=== PATIENT | female | born 1985 | race Two or more races ===

== ENCOUNTER 2016-03-30 11:29 | Inpatient (IN) | payer BC ==
[~2016-03-30] VITALS: Ht 160 cm; Wt 68.9 kg
[2016-03-30] MEDS ORDERED: IBUPROFEN200 MG ORAL (11:44)
[2016-03-30] MEDS ORDERED: TRAMADOL HCL50 MG ORAL (11:44)
[2016-03-30] MEDS ORDERED: Ampicillin/Sulbactam Sod 3 GM in NS 110 ML IVPB ONE (12:00)
[2016-03-30] MEDS ORDERED: NS 110 ML ONE (12:37)
[2016-03-30] MEDS ORDERED: Unasyn 3gm Inj ONE ×2 (12:37→17:58)
[2016-03-30 12:44] LABS: BASOPHILS % (AUTO) 1.4 % (0.0-2.0); LYMPHOCYTES % (AUTO) 27.4 % (20.0-45.0); MEAN CORPUSCULAR HEMOGLOBIN 31.7 PG (27.0-31.0); MEAN CORPUSCULAR HGB CONC 32.4 G/DL (32.0-36.0); MEAN CORPUSCULAR VOLUME 98 FL (80-99); MEAN PLATELET VOLUME 11.8 FL (6.5-10.1); MONOCYTES % (AUTO) 4.3 % (1.0-10.0); NEUTROPHILS % (AUTO) 63.9 % (45.0-75.0); PLATELET COUNT 212 K/UL (150-450); RED BLOOD COUNT 4.63 M/UL (4.20-5.40); RED CELL DISTRIBUTION WIDTH 12.2 % (11.6-14.8); WHITE BLOOD COUNT 10.3 K/UL (4.8-10.8)
[2016-03-30 12:59] LABS: APPEARANCE,URINE CLEAR
[2016-03-30 13:00] LABS: ALANINE AMINOTRANSFERASE 21 U/L (3-33); ALBUMIN/GLOBULIN RATIO 1.5 (1.0-2.7); ANION GAP 14 (5-15); ASPARTATE AMINO TRANSFERASE 22 U/L (5-40); CALCIUM 9.5 mg/dL (8.6-10.2); CARBON DIOXIDE 24 mEQ/L (20-30); CHLORIDE 101 mEQ/L (98-107); CREATININE 0.6 mg/dL (0.5-0.9); GLOMERULAR FILTRATION RATE > 60 mL/min (>60); HEMOLYSIS 6; KETONES,URINE NEGATIVE (NEGATIVE); LEUKOCYTE ESTERASE ,URINE 2+ (NEGATIVE); NITRITE,URINE NEGATIVE (NEGATIVE); PH,URINE 5 (4.5-8.0); POTASSIUM 4.2 mEQ/L (3.4-4.9); PROTEIN,URINE 1+ (NEGATIVE); SODIUM 139 mEQ/L (135-145); TOTAL PROTEIN 7.7 g/dL (6.6-8.7); UROBILINOGEN,URINE NORMAL MG/DL (0.0-1.0)
[2016-03-30 13:02] LABS: BACTERIA,URINE FEW /HPF; RBC,URINE 0-2 /HPF (0 - 2); SQUAMOUS EPITHELIAL CELL,UR FEW /LPF (NONE/OCC); WBC,URINE 15-20 /HPF (0 - 2)
--- NOTE | 2016-03-30 13:13 | History and Physical ---
History of Present Illness General Date patient seen: Mar 30, 2016 Time patient seen: 13:08 Reason for Hospitalization: Pain Present Illness HPI 31 y/o female who presents with severe gluteal pain and burning in that area since Sep 2014. In addition she states she also experiences low back pain ( severe) that radiates down both of her legs, causing paresthesias and some weakness as well. No bladder retention, no fecal incontinence. She did have an injection of silicone in her buttocks 4 years ago. Additional symptoms include, shortness of breath, occasional cough, vertigo and nausea over the past 1-2 months. Also states she has fatigue/malaise, that is impacting her ADLs and social interactions. She denies any other medical issues, no medications for chronic disease, non-smoker, occasional etoh use, smokes marijuana 1-2 times a month due to her severe pain, starting about 2 months ago. Allergies: Coded Allergies: No Known Allergies (Unverified , 03/30/16) Medication History Scheduled Ibuprofen (Ibuprofen*), 400 MG ORAL FOUR TIMES A DAY, (Reported) Scheduled PRN Tramadol Hcl* (Ultram*), 50 MG ORAL Q6H PRN for For Pain, (Reported) Patient History History Provided By: Patient Healthcare decision maker Resuscitation status Advanced Directive on File Family History Family History: Patient reports no known family medical history. Social History Social History: (1) No significant social history Review of Systems Constitutional: Reports: malaise Eye: Denies: acuity changes, blurred vision, discharge, double vision, eye pain , no symptoms, nose congestion, nose pain, other, see HPI, tearing ENT: Denies: ear discharge, ear pain, hearing loss, mouth pain, nasal discharge , no symptoms, nose congestion, nose pain, other, see HPI, throat pain, throat swelling Respiratory: Reports: cough, shortness of breath Cardiovascular: Denies: PND, chest pain, edema, no symptoms, other, palpitations, see HPI, syncope Gastrointestinal: Reports: diarrhea, nausea Genitourinary: Denies: discharge, dysuria, frequency, hematuria, incontinence, no symptoms, other, pain, retention, see HPI, urgency, vag bleed/dc Musculoskeletal: Reports: back pain, muscle pain Skin: Denies: change in color, change in hair/nails, dryness, lesions, no symptoms, other, rash, see HPI Psychiatric: Denies: HI, SI, anxiety, depressed feelings, emotional problems, hallucinations, no symptoms, other, prior hx, see HPI Neurological: Reports: dizziness Endocrine: Denies: excessive sweating, flushing, increased thirst, increased urine, intolerance to temperature, no symptoms, other, see HPI, unexplained weight loss Hematologic/Lymphatic: Denies: anemia, blood clots, diathesis, easy bleeding, easy bruising, no symptoms, other, see HPI, swollen glands Physical Exam General Appearance: WD/WN, no apparent distress, alert Lines, tubes and drains: peripheral HEENT: normocephalic, atraumatic, anicteric, mucous membranes moist Neck: non-tender, normal alignment, supple Respiratory/Chest: chest wall non-tender, lungs clear, normal breath sounds, no respiratory distress, no accessory muscle use Cardiovascular/Chest: normal peripheral pulses, normal rate, regular rhythm, no gallop/murmur, no JVD Abdomen: normal bowel sounds, non tender, soft Extremities: normal range of motion, non-tender, normal inspection, no calf tenderness, normal capillary refill Skin Exam: normal pigmentation, warm/dry, no diaphoresis Neurologic: alert, oriented x 3, responsive, normal mood/affect Last 24 Hour Vital Signs Date Time Temp Pulse Resp B/P Pulse Ox O2 Delivery O2 Flow Rate FiO2 03/30/16 11:39 97.9 81 16 124/76 100 Room Air Laboratory Tests Test 03/30/16 12:15 White Blood Count 10.3 K/UL (4.8-10.8) Red Blood Count 4.63 M/UL (4.20-5.40) Hemoglobin 14.7 G/DL (12.0-16.0) Hematocrit 45.3 % (37.0-47.0) Mean Corpuscular Volume 98 FL (80-99) Mean Corpuscular Hemoglobin 31.7 PG (27.0-31.0) H Mean Corpuscular Hemoglobin Concent 32.4 G/DL (32.0-36.0) Red Cell Distribution Width 12.2 % (11.6-14.8) Platelet Count 212 K/UL (150-450) Mean Platelet Volume 11.8 FL (6.5-10.1) H Neutrophils (%) (Auto) 63.9 % (45.0-75.0) Lymphocytes (%) (Auto) 27.4 % (20.0-45.0) Monocytes (%) (Auto) 4.3 % (1.0-10.0) Eosinophils (%) (Auto) 3.0 % (0.0-3.0) Basophils (%) (Auto) 1.4 % (0.0-2.0) Urine Color Yellow Urine Appearance Clear Urine pH 5 (4.5-8.0) Urine Specific [place] 1.020 (1.005-1.035) Urine Protein 1+ (NEGATIVE) H Urine Glucose (UA) Negative (NEGATIVE) Urine Ketones Negative (NEGATIVE) Urine Occult Blood Negative (NEGATIVE) Urine Nitrite Negative (NEGATIVE) Urine Bilirubin Negative (NEGATIVE) Urine Urobilinogen Normal MG/DL (0.0-1.0) Urine Leukocyte Esterase 2+ (NEGATIVE) H Urine RBC 0-2 /HPF (0 - 2) Urine WBC 15-20 /HPF (0 - 2) H Urine Squamous Epithelial Cells Few /LPF (NONE/OCC) Urine Bacteria Few /HPF (NONE) Sodium Level 139 mEQ/L (135-145) Potassium Level 4.2 mEQ/L (3.4-4.9) Chloride Level 101 mEQ/L (98-107) Carbon Dioxide Level 24 mEQ/L (20-30) Anion Gap 14 (5-15) Blood Urea Nitrogen 9 mg/dL (7-23) Creatinine 0.6 mg/dL (0.5-0.9) Estimat Glomerular Filtration Rate > 60 mL/min (>60) Glucose Level 94 mg/dL (74-106) Calcium Level 9.5 mg/dL (8.6-10.2) Total Bilirubin 0.8 mg/dL (0.0-1.2) Aspartate Amino Transf (AST/SGOT) 22 U/L (5-40) Alanine Aminotransferase (ALT/SGPT) 21 U/L (3-33) Alkaline Phosphatase 53 U/L (35-104) Total Protein 7.7 g/dL (6.6-8.7) Albumin 4.7 g/dL (3.5-5.2) Globulin 3.0 g/dL Albumin/Globulin Ratio 1.5 (1.0-2.7) Height (Feet): 5 Height (Inches): 3.00 Weight (Pounds): 152 Assessment/Plan Problem List: (1) Intractable low back pain Assessment & Plan: Admit to inpatient Will need expedited workup of severe low back pain, s/p gluteal silicone injection Extensive lab workup to r/o KIMBERLYN syndrome given classical symptoms and presentation MRI L spine and pelvis to r/o fluid collection, cord compression, soft tissue necrosis Check urine f/u blood cultures Start IV unasyn A total of 31 mins of additional time was spent with this patient beyond the normal face to face time included in the visit ICD Codes: M54.5 - Low back pain SNOMED: [id number] GERMAN VIEIRA Mar 30, 2016 13:13
[2016-03-30] MEDS ORDERED: Milk of Magnesia 30ml Ud ORAL PRN (13:15)
[2016-03-30] MEDS ORDERED: Miralax 17gm pkt ORAL PRN (13:15)
[2016-03-30] MEDS ORDERED: Mylanta II UD 30ml ORAL PRN (13:15)
[2016-03-30] MEDS ORDERED: LORazepam 1mg tab ORAL PRN (13:15)
[2016-03-30] MEDS: Morphine Sulfate 4mg/ml Inj IVP PRN ×2 (13:52→17:49)
--- NOTE | 2016-03-30 13:58 | Emergency Room Report ---
History of Present Illness General Chief Complaint: Pain Source: Patient Present Illness HPI 31-year-old female presents to ED complaining of pain in her buttocks x1 year. States that 3 years ago she received silicone injections in her buttocks. States that for last 1 year she has had pain in her buttocks bilaterally sharp, 10 out of 10, radiating upper back and down her legs bilaterally. Denies fevers or chills. Denies dysuria or hematuria. Denies bowel or bladder incontinence. Denies leg or motor weakness. Patient referred here by Dr. Clay. Denies any other associated symptoms Allergies: Coded Allergies: No Known Allergies (Unverified , 03/30/16) Patient History Past Medical History: none Past Surgical History: other - silicon injections in buttocks Pertinent Family History: none Social History: Denies: alcohol use, drug use, smoking Last Menstrual Period: March 02, 2016 Now: No Immunizations: UTD Reviewed Nursing Documentation: PMH: Agreed, PSxH: Agreed Nursing Documentation-PMH Hx Cardiac Problems: Yes - Heart murmur as a child Review of Systems All Other Systems: negative except mentioned in HPI Physical Exam Vital Signs Date Time Temp Pulse Resp B/P Pulse Ox O2 Delivery O2 Flow Rate FiO2 03/30/16 11:39 97.9 81 16 124/76 100 Room Air Sp02 EP Interpretation: reviewed, normal General Appearance: no apparent distress, alert, GCS 15, non-toxic Head: normocephalic Eyes: bilateral eye PERRL, bilateral eye normal inspection ENT: normal ENT inspection Neck: normal inspection Respiratory: chest non-tender, lungs clear, normal breath sounds, speaking full sentences Cardiovascular #1: regular rate, rhythm, no edema Gastrointestinal: normal bowel sounds, non tender, soft, non-distended, no guarding, no rebound Rectal: deferred Genitourinary: no CVA tenderness Musculoskeletal: back normal, gait/station normal, normal range of motion, non- tender Neurologic: alert, oriented x3, responsive, kitchen cleaner III-XII nml as tested, motor strength/tone normal, sensory intact, speech normal Psychiatric: normal inspection Skin: other - induration/tenderness to buttocks b/l Lymphatic: normal inspection Medical Decision Making Diagnostic Impression: Primary Impression: Intractable low back pain Additional Impression: Adverse effect of silicone Qualified Codes: T49.3X5A - Adverse effect of emollients, demulcents and protectants, initial encounter ER Course Hospital Course 31-year-old female present to ED complaining of bilateral pain to buttocks, radiating up the back, down the legs. s/p silicon injections in buttocks Differential diagnoses include: Cellulitis, abscess, allergic reaciton Clinical course Patient placed on stretcher. After initial history and physical I ordered labs , blood Cx labs reviewed - no leukocytosis, Hb/Hct stable, no electrolyte abnormalities. antibiotics given. Case discussed with Dr Clay and he agreed to accept the patient to his service for further care and support Diagnosis - intractable low back pain, adverse affect of silicone Patient admitted to floor in serious condition Labs Test 03/30/16 12:15 White Blood Count 10.3 K/UL (4.8-10.8) Red Blood Count 4.63 M/UL (4.20-5.40) Hemoglobin 14.7 G/DL (12.0-16.0) Hematocrit 45.3 % (37.0-47.0) Mean Corpuscular Volume 98 FL (80-99) Mean Corpuscular Hemoglobin 31.7 PG (27.0-31.0) Mean Corpuscular Hemoglobin Concent 32.4 G/DL (32.0-36.0) Red Cell Distribution Width 12.2 % (11.6-14.8) Platelet Count 212 K/UL (150-450) Mean Platelet Volume 11.8 FL (6.5-10.1) Neutrophils (%) (Auto) 63.9 % (45.0-75.0) Lymphocytes (%) (Auto) 27.4 % (20.0-45.0) Monocytes (%) (Auto) 4.3 % (1.0-10.0) Eosinophils (%) (Auto) 3.0 % (0.0-3.0) Basophils (%) (Auto) 1.4 % (0.0-2.0) Urine Color Yellow Urine Appearance Clear Urine pH 5 (4.5-8.0) Urine Specific [place] 1.020 (1.005-1.035) Urine Protein 1+ (NEGATIVE) Urine Glucose (UA) Negative (NEGATIVE) Urine Ketones Negative (NEGATIVE) Urine Occult Blood Negative (NEGATIVE) Urine Nitrite Negative (NEGATIVE) Urine Bilirubin Negative (NEGATIVE) Urine Urobilinogen Normal MG/DL (0.0-1.0) Urine Leukocyte Esterase 2+ (NEGATIVE) Urine RBC 0-2 /HPF (0 - 2) Urine WBC 15-20 /HPF (0 - 2) Urine Squamous Epithelial Cells Few /LPF (NONE/OCC) Urine Bacteria Few /HPF (NONE) Sodium Level 139 mEQ/L (135-145) Potassium Level 4.2 mEQ/L (3.4-4.9) Chloride Level 101 mEQ/L (98-107) Carbon Dioxide Level 24 mEQ/L (20-30) Anion Gap 14 (5-15) Blood Urea Nitrogen 9 mg/dL (7-23) Creatinine 0.6 mg/dL (0.5-0.9) Estimat Glomerular Filtration Rate > 60 mL/min (>60) Glucose Level 94 mg/dL (74-106) Calcium Level 9.5 mg/dL (8.6-10.2) Total Bilirubin 0.8 mg/dL (0.0-1.2) Aspartate Amino Transf (AST/SGOT) 22 U/L (5-40) Alanine Aminotransferase (ALT/SGPT) 21 U/L (3-33) Alkaline Phosphatase 53 U/L (35-104) Total Protein 7.7 g/dL (6.6-8.7) Albumin 4.7 g/dL (3.5-5.2) Globulin 3.0 g/dL Albumin/Globulin Ratio 1.5 (1.0-2.7) Last Vital Signs Date Time Temp Pulse Resp B/P Pulse Ox O2 Delivery O2 Flow Rate FiO2 03/30/16 11:39 97.9 81 16 124/76 100 Room Air Status: improved Disposition: ADMITTED INPATIENT Condition: Serious Referrals: NOT CHOSEN NEGRA/,REFERRING (PCP) SEKOU CHAVEZ M.D. Mar 30, 2016 13:58
[2016-03-30 16:46] VITALS: BP 104/66
[2016-03-30] MEDS ORDERED: Unasyn 3gm Inj IV SCH (18:00)
[2016-03-30] MEDS: Ampicillin/Sulbactam Sod 3 GM in D5W 110 ML IVPB SCH (18:03)
[2016-03-30 20:00] VITALS: BP 114/68
[2016-03-30] MEDS ORDERED: Docusate 100mg cap ORAL SCH (21:00)
[2016-03-30] MEDS: Heparin 5000 units/ml inj SUBQ SCH (22:30)
[2016-03-31] VITALS: BP 117/77
[2016-03-31] MEDS: Morphine Sulfate 4mg/ml Inj IVP PRN ×2 (01:10→18:57)
[2016-03-31] MEDS ORDERED: Unasyn 3gm Inj ONE ×2 (01:22→04:20)
[2016-03-31 04:00] VITALS: BP 98/69
[2016-03-31] MEDS: Ampicillin/Sulbactam Sod 3 GM in D5W 110 ML IVPB SCH ×5 (04:58→18:02)
[2016-03-31 08:00] VITALS: BP 110/74
[2016-03-31] MEDS: Heparin 5000 units/ml inj SUBQ SCH ×2 (08:44→21:00)
[2016-03-31 09:12] LABS: ANION GAP 13 (5-15); CALCIUM 8.5 mg/dL (8.6-10.2); CARBON DIOXIDE 26 mEQ/L (20-30); CHLORIDE 101 mEQ/L (98-107); CREATININE 0.6 mg/dL (0.5-0.9); GLOMERULAR FILTRATION RATE > 60 mL/min (>60); HEMOLYSIS 8; POTASSIUM 4.4 mEQ/L (3.4-4.9); SODIUM 140 mEQ/L (135-145)
[2016-03-31 10:17] LABS: RHEUMATOID FACTOR SCREEN <10.0 IU/mL (0.0-13.9)
[2016-03-31 12:00] VITALS: BP 114/79
[2016-03-31 12:10] LABS: IMMUNOGLOBULIN A 186 mg/dL (87-352); IMMUNOGLOBULIN G 835 mg/dL (700-1600); IMMUNOGLOBULIN M 65 mg/dL (26-217)
--- NOTE | 2016-03-31 12:37 | Consultation ---
DATE OF CONSULTATION: 03/30/2016 CONSULTING PHYSICIAN: Lola Ugarte M.D. HISTORY OF PRESENT ILLNESS: This is a 31-year-old female, who presented with the severe gluteal pain and burning in the gluteal area since 2014 and she is here for correction with surgery. She also has pain that is radiating down to her both lower extremities and has paresthesia and tingling. During the evaluation, the patient presented with dysphoria and anxiety; however, it was minimal and was appropriate to the situation that she is in. The patient has had injections of silicone in her buttock four years ago. During the evaluation, mother was at bedside. We discussed the risks and benefits of the surgery. We discussed that it is impossible to remove all of the foreign materials and therefore, there will be some left. Some of the silicone might have migrated or continue to migrate in the future. The patient might have several surgeries over many years and there is a chance that it could be cosmetically disfiguring and there is a chance that there will not be any improvement after the surgery. The patient was able to understand, process, communicate, and appreciate the information that was given to her. PAST MEDICAL HISTORY: None. ALLERGIES: No known drug allergies. PAST PSYCHIATRIC HISTORY: None. SUBSTANCE ABUSE HISTORY: No history of illicit drug use or alcohol. Nonsmoker. MENTAL STATUS EXAMINATION: Alert and oriented x4. Mood is neutral. Affect is constricted, congruent with mood. Thought process is linear. Thought content, no suicidal or homicidal ideations. ASSESSMENT/IMPRESSION: The patient has no past psychiatric history and mentally, she has capacity to make an informed decision in regard to her current situation and surgery. She is able to understand, communicate, process, and appreciate the information that is given to her and she has capacity to make medical decisions. I will continue to assess the patient after the surgery. Lola Ugarte M.D. DR: Shobha JOB#: [id number] CC:
[2016-03-31] MEDS: Morphine Sulfate 2mg/ml Inj IVP PRN ×2 (12:39→23:55)
[2016-03-31 16:06] VITALS: BP 116/75
--- NOTE | 2016-03-31 16:25 | Diagnostic Imaging Report ---
Indication: History of bilateral buttocks silicone injections. Preoperative imaging for anticipated silicone removal to determine extent of involvement. Technique: Coronal and axial T1 fast spin echo, coronal FSE IR, axial FSE STIR, axial T2 FRFSE with and without fat saturated images obtained of the pelvis Comparison: None Findings: Extensive signal abnormality is seen within the bilateral buttock subcutaneous fat and bilateral gluteus nicolasa muscles. There is diffuse increased IR signal as well as innumerable high signal nodules within the subcutaneous fat and gluteus musculature on the IR images, low signal on the T1-weighted images, slightly high diffuse T2 signal and higher nodular signal on the T2-weighted images, and marked suppression of the nodular areas on the fat-saturated images. The nodular areas are consistent with silicone granulomas, with generalized signal abnormality presumably representing reactive edema. Largest focal area of signal abnormality is seen in the left gluteus nicolasa musculature peripherally, measures 6.6 cm length by 1.9 x 1.4 cm orthogonal dimensions. It is unclear whether this represents a large silicone granuloma or small abscess, although suspect the former. The areas of abnormality extends inferiorly into the perineum, but do not extend significantly into the thigh. The skin anteriorly no farther than the level of posterior ducts, and superiorly no farther than the L5 level. The bone marrow signal is normal. The included pelvic viscera are unremarkable except for prominent fluid signal within the endocervical canal. Impression: Extensive diffuse nodular signal abnormality of the bilateral buttock subcutaneous fat and bilateral gluteal musculature, consistent with no history of prior silicone injections. Extent of the solid appears to be limited to the bilateral buttocks, and perineum Larger tubular signal abnormality within the left gluteal musculature probably represents a large silicone granuloma, although small abscess cannot completely ruled out Nonspecific prominent fluid signal within the endocervical canal. Consider further evaluation with pelvic and endovaginal sonography
--- NOTE | 2016-03-31 17:56 | General Progress Note ---
Assessment/Plan Problem List: (1) Intractable low back pain Assessment & Plan: MRI pelvis shows nodules diffusely, edema and inability to r /o fluid collection/abscess Consult plastic surgery for eval for I+D, debridement f/u Extensive lab workup to r/o KIMBERLYN syndrome given classical symptoms and presentation f/u blood cultures Cont IV unasyn A total of 31 mins of additional time was spent with this patient beyond the normal face to face time included in the visit ICD Codes: M54.5 - Low back pain SNOMED: [id number] Subjective Date patient seen: Mar 31, 2016 Time patient seen: 17:53 ROS Limited/Unobtainable: No Constitutional: Denies: chills, diaphoresis, fever, malaise, no symptoms, other , weakness HEENT: Denies: blurred vision, double vision, ear discharge, ear pain, eye pain , mouth pain, mouth swelling, no symptoms, nose congestion, nose pain, other, tearing, throat pain, throat swelling Cardiovascular: Denies: chest pain, edema, irregular heart rate, lightheadedness, no symptoms, other, palpitations, syncope Respiratory: Denies: SOB at rest, SOB with excertion, cough, no symptoms, orthopnea, other, shortness of breath, sputum, stridor, wheezing Gastrointestinal/Abdominal: Denies: abdomen distended, abdominal pain, black stools, blood in stool, constipated, diarrhea, difficulty swallowing, nausea, no symptoms, other, poor appetite, poor fluid intake, rectal bleeding, tarry stools, vomiting Genitourinary: Denies: burning, discharge, flank pain, frequency, hematuria, incontinence, no symptoms, other, pain, urgency Neurologic/Psychiatric: Denies: anxiety, depressed, emotional problems, headache, no symptoms, numbness, other, paresthesia, pre-existing deficit, seizure, tingling, tremors, weakness Endocrine: Denies: excessive sweating, flushing, increased hunger, increased thirst, increased urine, intolerance to cold, intolerance to heat, no symptoms, other, unexplained weight gain, unexplained weight loss Hematologic/Lymphatic: Denies: anemia, easy bleeding, easy bruising, no symptoms, other Allergies: Coded Allergies: No Known Allergies (Unverified , 03/30/16) Subjective No acute overnight events, no new complaints. Denied chest pain or dyspnea, pain controlled on IV morphine, MRI pelvis done and shows subcu fluid and nodules Objective Last 24 Hour Vital Signs Date Time Temp Pulse Resp B/P Pulse Ox O2 Delivery O2 Flow Rate FiO2 03/31/16 16:06 97.9 84 18 116/75 98 Room Air 03/31/16 12:00 97.2 75 20 114/79 100 Room Air 03/31/16 08:00 97.5 75 20 110/74 95 Room Air 03/31/16 04:00 97.2 69 19 98/69 97 Room Air 03/31/16 01:40 97.5 03/31/16 00:00 97.5 65 19 117/77 99 Room Air 03/30/16 20:00 98.1 79 19 114/68 98 Room Air 03/30/16 18:50 98.0 81 18 104/66 97 Room Air Intake and Output 03/30/16 03/31/16 19:00 07:00 Intake Total 1100 ml Balance 1100 ml IV Total 1100 ml # Voids 2 Laboratory Tests 03/31/16 08:30: Sodium Level 140, Potassium Level 4.4, Chloride Level 101, Carbon Dioxide Level 26, Anion Gap 13, Blood Urea Nitrogen 6L, Creatinine 0.6, Estimat Glomerular Filtration Rate > 60, Glucose Level 85, Calcium Level 8.5L Height (Feet): 5 Height (Inches): 3.00 Weight (Pounds): 152 General Appearance: WD/WN, no apparent distress, alert EENT: PERRL/EOMI Neck: non-tender, normal alignment, supple Cardiovascular: normal peripheral pulses, normal rate, regular rhythm, no gallop/murmur, no JVD Respiratory/Chest: chest wall non-tender, lungs clear, normal breath sounds, no respiratory distress, no accessory muscle use Abdomen: normal bowel sounds, non tender, soft, no organomegaly Extremities: normal range of motion, non-tender, normal inspection, no calf tenderness Neurologic: alert, oriented x 3, responsive Skin: normal pigmentation, warm/dry, no diaphoresis GERMAN VIEIRA Mar 31, 2016 17:56
[2016-03-31 20:21] VITALS: BP 120/70
[2016-03-31] MEDS: LR 1000ml 1,000 ML IV SCH (21:02)
[2016-04-01] VITALS (13 sets, daily range): BP systolic 116–144; BP diastolic 70–93
[2016-04-01] MEDS: Ampicillin/Sulbactam Sod 3 GM in D5W 110 ML IVPB SCH ×4 (00:13→18:39)
[2016-04-01] MEDS: LR 1000ml 1,000 ML IV SCH ×2 (05:30→18:16)
[2016-04-01] MEDS: Heparin 5000 units/ml inj SUBQ SCH ×2 (08:44→21:58)
--- NOTE | 2016-04-01 09:07 | Consultation ---
History of Present Illness General Date patient seen: Apr 01, 2016 Chief Complaint: Pain Present Illness Allergies: Coded Allergies: No Known Allergies (Unverified , 03/30/16) Medication History Scheduled Ibuprofen (Ibuprofen*), 400 MG ORAL FOUR TIMES A DAY, (Reported) Scheduled PRN Tramadol Hcl* (Ultram*), 50 MG ORAL Q6H PRN for For Pain, (Reported) Patient History Healthcare decision maker Resuscitation status Full Code Advanced Directive on File Physical Exam Last 24 Hour Vital Signs Date Time Temp Pulse Resp B/P Pulse Ox O2 Delivery O2 Flow Rate FiO2 04/01/16 08:00 99.0 72 18 122/70 100 04/01/16 04:02 97.9 80 19 121/79 98 Room Air 04/01/16 00:40 97.4 69 18 116/76 97 Room Air 04/01/16 00:26 98.1 03/31/16 20:21 98.1 87 19 120/70 99 Room Air 03/31/16 16:06 97.9 84 18 116/75 98 Room Air 03/31/16 12:00 97.2 75 20 114/79 100 Room Air Intake and Output 03/31/16 04/01/16 19:00 07:00 Intake Total 360 ml 950 ml Balance 360 ml 950 ml Intake Oral 360 ml 240 ml IV Total 710 ml # Voids 2 2 # Bowel Movements 1 Laboratory Tests Test 04/01/16 05:30 Urine HCG, Qualitative Negative Height (Feet): 5 Height (Inches): 3.00 Weight (Pounds): 152 Medications Current Medications Medications (Trade) Dose Ordered Sig/Laura Route PRN Reason Start Time Stop Time Status Last Admin Dose Admin Acetaminophen (Tylenol) 650 mg Q4H PRN ORAL Mild Pain (Pain Scale 1-3) 03/30/16 13:15 04/29/16 13:14 Acetaminophen (Tylenol) 650 mg Q4H PRN ORAL fever 03/30/16 13:15 04/29/16 13:14 Al Hydroxide/Mg Hydroxide (Mylanta II) 30 ml Q6H PRN ORAL dyspepsia 03/30/16 13:15 04/29/16 13:14 Ampicillin Sodium/ Sulbactam Sodium 3 gm/Dextrose 110 ml @ 220 mls/hr Q6HR IVPB 03/30/16 18:00 04/06/16 17:59 04/01/16 05:30 Bisacodyl (Dulcolax) 10 mg HSPRN PRN RECTAL Constipation 03/30/16 13:15 04/29/16 13:14 Dextrose STAT PRN IV Hypoglycemia 03/30/16 13:15 04/29/16 13:14 Diphenhydramine HCl (Benadryl) 25 mg Q6H PRN ORAL Itching/Pruritis 03/30/16 13:15 04/29/16 13:14 Heparin Sodium (Porcine) (Heparin 5000 units/ml) 5,000 units EVERY 12 HOURS SUBQ 03/30/16 21:00 04/29/16 20:59 03/31/16 08:44 Lactated Ringer's (Lactated Ringer's 1000ml) 1,000 ml @ 100 mls/hr Q10H IV 03/31/16 20:00 04/30/16 19:59 04/01/16 05:30 Lorazepam (Ativan) 1 mg Q4H PRN ORAL For Anxiety 03/30/16 13:15 04/06/16 13:14 Magnesium Hydroxide (Mom) 30 ml HSPRN PRN ORAL Constipation 03/30/16 13:15 04/29/16 13:14 Morphine Sulfate (Morphine Sulfate) 2 mg Q4H PRN IVP Moderate Pain (Pain Scale 4-6) 03/30/16 13:15 04/06/16 13:14 03/31/16 23:55 Morphine Sulfate (Morphine Sulfate) 4 mg Q4H PRN IVP Severe Pain (Pain Scale 7-10) 03/30/16 13:15 04/06/16 13:14 03/31/16 18:57 Ondansetron HCl (Zofran) 4 mg Q6H PRN IVP Nausea & Vomiting 03/30/16 13:15 04/29/16 13:14 Temazepam (Restoril) 15 mg HSPRN PRN ORAL Insomnia 03/30/16 13:15 04/06/16 13:14 Assessment/Plan Assessment/Plan (1) B/L buttock and back soft tissue necrosis, cellulitis (2) Going for staged debridement of b/l buttock and back necrotic soft tissue, flap delay and vac placement (3) Intractable pain Seen dictated JOSHUA BEYER Apr 01, 2016 09:07
--- NOTE | 2016-04-01 09:09 | Diagnostic Imaging Report ---
Indication: History bilateral silicone injection in the buttocks. Assessment of extent prior to surgical removal Technique: Sagittal T1 and T2 fast spin echo, sagittal STIR, axial T1 and T2 fast spin-echo images of the lumbar spine Comparison: Reference made to pelvic MRI the same day Findings: High T2 and low T1 signal nodular opacities and generalized signal abnormality within the subcutaneous fat of the bilateral buttock region, as well as of the bilateral gluteus nicolasa musculature, is better appreciated on earlier Shira MRI. The lumbar spine demonstrates normal alignment, normal marrow signal. The discs are preserved. No significant disc bulge or protrusion, spinal stenosis, or neural foraminal stenosis demonstrated. The included abdominal and pelvic viscera are unremarkable. Impression: Signal abnormalities in the upper buttock and gluteal musculature, consistent with known history of silicone injections, extending as far cephalad as the L5 segment Otherwise unremarkable
[2016-04-01] MEDS ORDERED: Bacitracin 50000 Units Vial ONE (11:04)
--- NOTE | 2016-04-01 11:35 | Pre-Procedure Note/Attestation ---
Pre-Procedure Note/Attestation Complete Prior to Procedure Planned Procedure: bilateral Procedure Narrative: staged debridement of b/l back and buttock necrotic soft tissue, flap delay and vac placement Indications for Procedure Pre-Operative Diagnosis: b/l buttock and back necrotic soft tissue, flap delay Attestation I attest that I discussed the nature of the procedure; its benefits; risks and complications; and alternatives (and the risks and benefits of such alternatives ), prior to the procedure, with the patient (or the patient's legal area representative). I attest that, if there was a reasonable possibility of needing a blood transfusion, the patient (or the patient's legal area representative) was given the [place] Department [employer] Services standardized written summary, pursuant to the [place] Blood Safety Act ([place] Health and Safety Code # 1645, as amended). I attest that I re-evaluated the patient just prior to the surgery and that there has been no change in the patient's H&P, except as documented below: Luz Juan M.D. Apr 01, 2016 11:35
[2016-04-01] MEDS ORDERED: Propofol 10mg/ml 20ml IV ONE ×2 (11:40→12:00)
--- NOTE | 2016-04-01 11:44 | Anethesia Preoperative Eval ---
Anesthesia Pre-op PMH/ROS General Date of Evaluation: Apr 01, 2016 Time of Evaluation: 11:30 Anesthesiologist: Jose ASA Score: ASA 1 Mallampati Score Class I : Soft palate, uvula, fauces, pillars visible Class II: Soft palate, uvula, fauces visible Class III: Soft palate, base of uvula visible Class IV: Only hard plate visible Mallampati Classification: Class II Surgeon: Drake Diagnosis: Intractable back pain Surgical Procedure: Debridement of soft tissue necrotic tissue Family History: no anesthesia problems Allergies: Coded Allergies: No Known Allergies (Unverified , 03/30/16) Medications: see eMAR Past Medical History Cardiovascular: Reports: other - Patient had correction of ?patent foramen ovale or septal defect? at age 9., Denies: CAD, HTN, MS, arrhythmia, valve dz Pulmonary: Denies: COPD, HEATH, asthma, other Gastrointestinal/Genitourinary: Denies: CRI, ESRD, GERD, other Neurologic/Psychiatric: Denies: CVA, TIA, dementia, depression/anxiety, other Endocrine: Denies: DM, hypothyroidism, other, steroids HEENT: Denies: [place] (L), [place] (R), cataract (L), cataract (R), glaucoma, other Hematology/Immune: Denies: DVT, anemia, bleeding disorder, other Musculoskeletal/Integumentary: Denies: DDD, DJD, OA, RA, edema, other PMH Narrative: Denies PSxH Narrative: Repair of ?patent foramen ovale vs septal defect? at age 9 Anesthesia Pre-op Phys. Exam Physician Exam Last Vital Signs Date Time Temp Pulse Resp B/P Pulse Ox O2 Delivery O2 Flow Rate FiO2 04/01/16 08:00 99.0 72 18 122/70 100 04/01/16 04:02 Room Air Constitutional: NAD Neurologic: CN 2-12 intact Cardiovascular: RRR, no M/R/G Gastrointestinal: S/NT/ND Airway Exam Mallampati Score: Class II MO: full ROM: full Teeth: intact Anesthesia Pre-op A/P Labs WNL Urine Test Test 04/01/16 05:30 Urine HCG, Qualitative Negative Risk Assessment & Plan Assessment: Healthy female Plan: GETA, prone Status Change Before Surgery: Yes Pre-Antibiotics Drug: Ancef Given Within 1 Hr of Incision: Yes Time Given: 12:00 SHAYE ABREU M.D. Apr 01, 2016 11:44
[2016-04-01] MEDS ORDERED: LORazepam Inj 2mg/ml 1ml IV PRN (11:45)
[2016-04-01] MEDS ORDERED: LR 1000ml 1,000 ML IVLG SCH (11:45)
[2016-04-01] MEDS ORDERED: Meperidine 25mg/ml Inj IV PRN (11:45)
[2016-04-01] MEDS ORDERED: Hydromorphone 0.5mg/0.5ml inj IVP PRN (11:45)
--- NOTE | 2016-04-01 11:45 | Immediate Post-Op Evaluation ---
Immediate Post-Op Evalulation Immediate Post-Op Evalulation Procedure: Debridement of soft tissue necrotic tissue in low back Date of Evaluation: Apr 01, 2016 Time of Evaluation: 14:20 IV Fluids: 600 Estimated Blood Loss: 30 Urinary Output: 100 Blood Pressure Systolic: 130 Blood Pressure Diastolic: 78 Pulse Rate: 78 Respiratory Rate: 18 O2 Sat by Pulse Oximetry: 100 Temperature (Fahrenheit): 97.2 Pain Score (1-10): 3 Nausea: No Vomiting: No Complications No complication Patient Status: awake, patent, extubated, none Hydration Status: adequate Drug: Ancef Given Within 1 Hr of Incision: Yes Time Given: 11:50 SHAYE ABREU M.D. Apr 01, 2016 11:45
[2016-04-01] MEDS ORDERED: NS Irrig 1000ml ONE (12:00)
[2016-04-01] MEDS ORDERED: Midazolam 2mg/2ml Inj ONE (12:00)
[2016-04-01] MEDS ORDERED: Zemuron 50mg/5ml Inj IV ONE (12:00)
[2016-04-01] MEDS ORDERED: fentaNYL 100 mcg/2 mL IV ONE (12:00)
[2016-04-01] MEDS ORDERED: LR 1000ml ONE (12:00)
[2016-04-01] MEDS ORDERED: Sterile Water Irrig 1000ml IRRIG ONE (12:00)
--- NOTE | 2016-04-01 14:02 | Operative Note - PDOC ---
Operative Note Operative Note Pre-op Diagnosis: b/l buttock and back necrotic soft tissue, flap delay Procedure: staged debridement of b/l buttock and back pain, flap delay and vac placement Post-op Diagnosis: same as above Post-op Diagnosis: same as pre-op Surgeon: dani Haz Tech: isrrael Additional Surgeons: ruiz Anesthesiologist: connor Anesthesia: general Specimen: yes Complications: none Estimated Blood Loss: volume - 250 Drains: wound vac Implant(s) used?: No Luz Juan M.D. Apr 01, 2016 14:02
[2016-04-01] MEDS ORDERED: Metoclopramide 10mg/2ml Inj IVP PRN (14:15)
[2016-04-01] MEDS ORDERED: Rate Change PCA 1 Each MISC PRN (14:15)
[2016-04-01] MEDS: PCA HYDROmorphone 1mg/ml 30 ML IV PRN (14:59)
[2016-04-01] MEDS: PCA shift volume MISC SCH ×2 (15:00→23:28)
--- NOTE | 2016-04-01 17:47 | General Progress Note ---
Assessment/Plan Problem List: (1) Intractable low back pain Assessment & Plan: s/p I+D of buttocks, POD#0 Cont postop care Cont pain control Supp care f/u Extensive lab workup to r/o KIMBERLYN syndrome given classical symptoms and presentation f/u blood cultures Cont IV unasyn A total of 31 mins of additional time was spent with this patient beyond the normal face to face time included in the visit ICD Codes: M54.5 - Low back pain SNOMED: [id number] Subjective Date patient seen: Apr 01, 2016 Time patient seen: 17:45 ROS Limited/Unobtainable: No Constitutional: Reports: no symptoms HEENT: Reports: no symptoms Cardiovascular: Reports: no symptoms Respiratory: Reports: no symptoms Gastrointestinal/Abdominal: Reports: no symptoms Genitourinary: Reports: no symptoms Neurologic/Psychiatric: Reports: no symptoms Endocrine: Reports: no symptoms Hematologic/Lymphatic: Reports: no symptoms Allergies: Coded Allergies: No Known Allergies (Unverified , 03/30/16) Subjective s/p I+D of buttocks earlier today, postop pain well controlled on [employer]UP[employer]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0 04/01/16 14:11 78 18 100 04/01/16 14:10 69 24 128/76 100 Simple Mask 6.0 04/01/16 14:05 98.2 84 15 131/93 100 Simple Mask 6.0 04/01/16 08:00 99.0 72 18 122/70 100 04/01/16 04:02 97.9 80 19 121/79 98 Room Air 04/01/16 00:40 97.4 69 18 116/76 97 Room Air 04/01/16 00:26 98.1 03/31/16 20:21 98.1 87 19 120/70 99 Room Air Intake and Output 03/31/16 04/01/16 19:00 07:00 Intake Total 360 ml 950 ml Balance 360 ml 950 ml Intake Oral 360 ml 240 ml IV Total 710 ml # Voids 2 2 # Bowel Movements 1 Laboratory Tests 04/01/16 05:30: Urine HCG, Qualitative Negative Height (Feet): 5 Height (Inches): 3.00 Weight (Pounds): 152 General Appearance: WD/WN, no apparent distress, alert EENT: PERRL/EOMI Neck: non-tender, normal alignment, supple Cardiovascular: normal peripheral pulses, normal rate, regular rhythm Respiratory/Chest: chest wall non-tender, lungs clear, normal breath sounds, no respiratory distress Abdomen: normal bowel sounds, non tender, soft Extremities: normal range of motion, non-tender, normal inspection, no calf tenderness Neurologic: alert, oriented x 3, responsive, normal mood/affect Skin: normal pigmentation, warm/dry, no diaphoresis GERMAN VIEIRA Apr 01, 2016 17:47
--- NOTE | 2016-04-01 23:58 | Consultation ---
DATE OF CONSULTATION: 04/01/2016 CONSULTING PHYSICIAN: Keaton Rubin M.D. PHYSICIAN RADIO INTERFERENCE EXPERT: León Hargrove REFERRING PHYSICIAN: Chuy Shah M.D. CHIEF COMPLAINT: Buttock and back pain. HISTORY OF PRESENT ILLNESS: This is a 31-year-old female, who is being seen on the Med/Surg floor of [facility] for initial comprehensive pain management consultation. The patient has been having buttock and back pain caused by cellulitis and necrotic tissue and is scheduled with Dr. Juan for a debridement and wound VAC placement. At this time, the patient is on morphine 2 to 4 mg IV q.4 h. p.r.n. for pain, which has been controlling her pain until surgery. PAST MEDICAL HISTORY: Heart issues. PAST SURGICAL HISTORY: Heart murmur repair. ALLERGIES: No known drug allergies. MEDICATIONS: The patient does not take medications as an outpatient. SOCIAL HISTORY: Denies smoking, drinking alcohol, or drug abuse. REVIEW OF SYSTEMS: Denies rash, fever, chills, sweating, dizziness, drowsiness, blurred vision, sore throat, or change in weight. No shortness of breath or chest pain. No nausea, vomiting, or blood in the stool or urine. No bowel or bladder incontinence. The patient is complaining of back and buttock pain. PHYSICAL EXAMINATION: GENERAL APPEARANCE: Awake, alert and oriented. VITAL SIGNS: Blood pressure 122/70, heart rate 72, oxygen saturation 100%, respirations 18, and temperature is 99 degrees Fahrenheit. Height is 5 feet 3 inches with 160 pounds. NECK: Range of motion is full in all directions. No tenderness. No adenopathy. LUNGS: Clear. HEART: Regular. ABDOMEN: Benign. BACK: Range of motion is decreased in flexion and extension with tenderness to paraspinal muscles with skin changes noted on the buttock area with tenderness to palpation. EXTREMITIES: Upper extremity, range of motion is full in all directions. Motor is intact. No cyanosis, clubbing, or edema. Sensory is intact. Reflexes are not obtainable. No adenopathy. Lower extremity, range of motion is decreased due to the patient's clinical condition. Motor is intact. No cyanosis, clubbing, or edema. Sensory is intact. Reflexes are not obtainable. No adenopathy. ASSESSMENT AND PLAN: This is a 31-year-old female with bilateral buttock pain and back tissue necrosis and cellulitis, going for a staged debridement of the bilateral buttock and back with flap delay and wound VAC placement. Patient has intractable pain. The patient will be continued on morphine as needed. The patient was discussed with Dr. Rubin and Dr. Rubin concurred. We will follow the patient. Thank you very much for the courtesy of this consultation. Keaton Rubin M.D. PENNY Hargrove DR: BRANDON JOB#: [id number] CC:
[2016-04-02] VITALS: BP 109/55
[2016-04-02] MEDS: Ampicillin/Sulbactam Sod 3 GM in D5W 110 ML IVPB SCH ×4 (00:42→17:54)
[2016-04-02] MEDS: LR 1000ml 1,000 ML IV SCH ×2 (02:00→08:52)
[2016-04-02 04:00] VITALS: BP 101/56
[2016-04-02] MEDS: Heparin 5000 units/ml inj SUBQ SCH ×3 (06:07→22:07)
[2016-04-02] MEDS: PCA shift volume MISC SCH ×3 (07:00→23:00)
[2016-04-02 07:02] LABS: BASOPHILS % (AUTO) 0.9 % (0.0-2.0); EOSINOPHILS % (AUTO) 2.6 % (0.0-3.0); LYMPHOCYTES % (AUTO) 27.6 % (20.0-45.0); MEAN CORPUSCULAR HGB CONC 35.1 G/DL (32.0-36.0); MEAN CORPUSCULAR VOLUME 97 FL (80-99); MEAN PLATELET VOLUME 11.5 FL (6.5-10.1); MONOCYTES % (AUTO) 6.3 % (1.0-10.0); NEUTROPHILS % (AUTO) 62.6 % (45.0-75.0); PLATELET COUNT 178 K/UL (150-450); RED CELL DISTRIBUTION WIDTH 11.6 % (11.6-14.8); WHITE BLOOD COUNT 11.9 K/UL (4.8-10.8)
[2016-04-02 07:26] LABS: ANION GAP 11 (5-15); CALCIUM 8.5 mg/dL (8.6-10.2); CARBON DIOXIDE 26 mEQ/L (20-30); CHLORIDE 104 mEQ/L (98-107); CREATININE 0.6 mg/dL (0.5-0.9); GLOMERULAR FILTRATION RATE > 60 mL/min (>60); HEMOLYSIS 4; POTASSIUM 4.1 mEQ/L (3.4-4.9); SODIUM 141 mEQ/L (135-145)
[2016-04-02 08:00] VITALS: BP 101/58
--- NOTE | 2016-04-02 08:05 | General Progress Note ---
Assessment/Plan Assessment/Plan (1) B/L buttock and back soft tissue necrosis, cellulitis (2) S/p staged debridement of b/l buttock and back necrotic soft tissue, flap delay and vac placement (3) Intractable pain The patient will continue on the OFFICE SYSTEM ANALYST Dilaudid, Dilaudid IV SubQ The patient was discussed with Dr. Rubin and Dr. Rubin concurred. Subjective Date patient seen: Apr 02, 2016 Time patient seen: 08:00 - am Allergies: Coded Allergies: No Known Allergies (Unverified , 03/30/16) Subjective REVIEW OF SYSTEMS: Denies rash, fever, chills, sweating, dizziness, drowsiness, blurred vision, sore throat, or change in her weight. No shortness of breath or chest pain. No nausea, vomiting, diarrhea, or blood in the stool or urine. No bowel or bladder incontinence. No dysuria. Complaining of back and buttock pain. SUBJECTIVE: Pt is in bed laying on her stomach, pain is worse with movement and reduced on the mediations. Objective Last 24 Hour Vital Signs Date Time Temp Pulse Resp B/P Pulse Ox O2 Delivery O2 Flow Rate FiO2 04/02/16 04:00 97.5 73 18 101/56 96 Room Air 04/02/16 04:00 16 04/02/16 00:00 18 04/02/16 00:00 97.9 100 18 109/55 99 Nasal Cannula 3.0 04/01/16 20:30 97.2 78 20 126/81 Nasal Cannula 3.0 04/01/16 20:00 92.8 82 19 129/74 Room Air 04/01/16 20:00 18 04/01/16 16:13 Nasal Cannula 3.0 32 04/01/16 16:00 18 04/01/16 15:40 13 04/01/16 15:29 98.0 04/01/16 15:25 15 04/01/16 15:20 98.0 76 13 129/85 100 Nasal Cannula 3.0 04/01/16 15:14 15 04/01/16 15:08 98.0 04/01/16 15:05 69 15 144/82 100 Nasal Cannula 3.0 04/01/16 14:59 13 04/01/16 14:50 63 14 126/80 100 Nasal Cannula 3.0 04/01/16 14:44 97.3 04/01/16 14:35 64 17 134/81 100 Nasal Cannula 3.0 04/01/16 14:25 70 14 132/79 100 Nasal Cannula 3.0 04/01/16 14:15 69 17 134/79 100 Simple Mask 6.0 04/01/16 14:11 78 18 100 04/01/16 14:10 69 24 128/76 100 Simple Mask 6.0 04/01/16 14:05 98.2 84 15 131/93 100 Simple Mask 6.0 Intake and Output 04/01/16 04/02/16 19:00 07:00 Intake Total 1000 ml 1045 ml Output Total 280 ml 1350 ml Balance 720 ml -305 ml Intake Oral 560 ml IV Total 1000 ml 485 ml Output Urine Total 150 ml 1000 ml Estimated Blood Loss 30 ml Other 100 ml 350 ml Laboratory Tests 04/02/16 05:10: White Blood Count 11.9H, Red Blood Count 3.60L, Hemoglobin 12.3, Hematocrit 34.9L, Mean Corpuscular Volume 97, Mean Corpuscular Hemoglobin 34.0H, Mean Corpuscular Hemoglobin Concent 35.1, Red Cell Distribution Width 11.6, Platelet Count 178, Mean Platelet Volume 11.5H, Neutrophils (%) (Auto) 62.6, Lymphocytes (%) (Auto) 27.6, Monocytes (%) (Auto) 6.3, Eosinophils (%) (Auto) 2.6, Basophils (%) (Auto) 0.9, Sodium Level 141, Potassium Level 4.1, Chloride Level 104, Carbon Dioxide Level 26, Anion Gap 11, Blood Urea Nitrogen 5L, Creatinine 0.6, Estimat Glomerular Filtration Rate > 60, Glucose Level 85, Calcium Level 8.5L Height (Feet): 5 Height (Inches): 3.00 Weight (Pounds): 152 Objective PHYSICAL EXAMINATION: GENERAL: Alert, awake, and oriented x3. HEENT: PERRLA. NECK: Range of motion is full in all directions. No tenderness to the paracervical muscles. No adenopathy. LUNGS: Clear. HEART: Regular. ABDOMEN: Benign. BACK: Range of motion is decreased in flexion and extension with tenderness to paraspinal muscles with wound VAC seen and placed with tenderness to palpation on the buttock area. EXTREMITIES: No cyanosis. No clubbing. No edema. NEURO: No changes. JOSHUA BEYER Apr 02, 2016 08:05
[2016-04-02 09:35] LABS: A/G RATIO 1.6 (0.7-1.7); ABNORMAL PROTEIN BAND 1 Not Observed g/dL (Not Observed); ALBUMIN 3.7 g/dL (2.9-4.4); ALPHA-1 GLOBULIN 0.2 g/dL (0.0-0.4); ALPHA-2 GLOBULIN 0.5 g/dL (0.4-1.0); ANGIOTENSIN CONVERTING ENZYME 62 U/L (14-82); BETA GLOBULIN 0.8 g/dL (0.7-1.3); CD3 ABSOLUTE 2397 /uL (622-2402); CD4 ABSOLUTE 1530 /uL (359-1519); CD8 ABSOLUTE 758 /uL (109-897); GAMMA GLOBULIN 0.8 g/dL (0.4-1.8); GLOBULIN, TOTAL 2.3 g/dL (2.2-3.9); LYMPHOCYTES ABSOLUTE 3.4 x10E3/uL (0.7-3.1); LYMPHS 33 % (.); SS-B/La SJOGRENS ANTIBODY <0.2 AI (0.0-0.9); SSA/Ro SJOGRENS ANTIBODY <0.2 AI (0.0-0.9); WBC 10.4 x10E3/uL (3.4-10.8)
--- NOTE | 2016-04-02 10:47 | General Progress Note ---
Progress Note Progress Note Pt without and c/o and reports resolution of pre-op symptoms and pain (+) OOB AF/VSS H/H stable PE:flaps viable (-) collections (-) signs infection VACs functioning A/P 1. repeat am CBC; type and cross 1 U prbc 2. OOB, DVT ppx; Abx 3. NPO after MN thur-Fri; IVF after Mn thur-fri 4. to OR Fri for staged debridement of b/l buttocks necrotic soft tissue and flap closure 5. freq position changes Luz Juan M.D. Apr 02, 2016 10:47
[2016-04-02] MEDS ORDERED: LR 1000ml 1,000 ML IV SCH (11:00)
[2016-04-02 12:00] VITALS: BP 119/69
[2016-04-02] MEDS: PCA HYDROmorphone 1mg/ml 30 ML IV PRN (13:46)
--- NOTE | 2016-04-02 14:08 | 48 Hour Post Anesthesia Eval ---
Post Anesthesia Evaluation Procedure: Debridement of soft tissue necrotic tissue in low back Date of Evaluation: Apr 02, 2016 Time of Evaluation: 14:07 Blood Pressure Systolic: 120 0: 70 Pulse Rate: 76 Respiratory Rate: 20 Temperature (Fahrenheit): 97 O2 Sat by Pulse Oximetry: 97 Airway: patent Nausea: No Vomiting: No Pain Intensity: 3 Hydration Status: adequate Cardiopulmonary Status: stable Follow-up Care/Observations: na Post-Anesthesia Complications: na Follow-up care needed: N/A ANNMARIE TADEO M.D. Apr 02, 2016 14:08
[2016-04-02 16:18] VITALS: BP 118/62
--- NOTE | 2016-04-02 19:33 | General Progress Note ---
Assessment/Plan Problem List: (1) Intractable low back pain Assessment & Plan: s/p I+D of buttocks, POD#1 Cont postop care Cont pain control Supp care f/u Extensive lab workup to r/o KIMBERLYN syndrome given classical symptoms and presentation f/u blood cultures Cont IV unasyn ICD Codes: M54.5 - Low back pain SNOMED: [id number] Subjective Date patient seen: Apr 02, 2016 Time patient seen: 19:32 ROS Limited/Unobtainable: No Allergies: Coded Allergies: No Known Allergies (Unverified , 03/30/16) Subjective s/p I+D of buttocks POD#1, postop pain well controlled on [employer]SULTANT, no chest pain or dyspnea Objective Last 24 Hour Vital Signs Date Time Temp Pulse Resp B/P Pulse Ox O2 Delivery O2 Flow Rate FiO2 04/02/16 16:18 97.9 95 18 118/62 97 Room Air 04/02/16 14:08 76 20 97 04/02/16 12:00 16 04/02/16 12:00 97.0 103 18 119/69 93 Room Air 04/02/16 08:00 97.4 75 20 101/58 96 Room Air 04/02/16 08:00 16 04/02/16 07:55 Room Air 21 04/02/16 07:55 97 Room Air 04/02/16 04:00 97.5 73 18 101/56 96 Room Air 04/02/16 04:00 16 04/02/16 00:00 18 04/02/16 00:00 97.9 100 18 109/55 99 Nasal Cannula 3.0 04/01/16 20:30 97.2 78 20 126/81 Nasal Cannula 3.0 04/01/16 20:00 92.8 82 19 129/74 Room Air 04/01/16 20:00 18 Intake and Output 04/01/16 04/02/16 19:00 07:00 Intake Total 1000 ml 1920 ml Output Total 280 ml 1350 ml Balance 720 ml 570 ml Intake Oral 560 ml IV Total 1000 ml 1360 ml Output Urine Total 150 ml 1000 ml Estimated Blood Loss 30 ml Other 100 ml 350 ml Laboratory Tests 04/02/16 05:10: White Blood Count 11.9H, Red Blood Count 3.60L, Hemoglobin 12.3, Hematocrit 34.9L, Mean Corpuscular Volume 97, Mean Corpuscular Hemoglobin 34.0H, Mean Corpuscular Hemoglobin Concent 35.1, Red Cell Distribution Width 11.6, Platelet Count 178, Mean Platelet Volume 11.5H, Neutrophils (%) (Auto) 62.6, Lymphocytes (%) (Auto) 27.6, Monocytes (%) (Auto) 6.3, Eosinophils (%) (Auto) 2.6, Basophils (%) (Auto) 0.9, Sodium Level 141, Potassium Level 4.1, Chloride Level 104, Carbon Dioxide Level 26, Anion Gap 11, Blood Urea Nitrogen 5L, Creatinine 0.6, Estimat Glomerular Filtration Rate > 60, Glucose Level 85, Calcium Level 8.5L Height (Feet): 5 Height (Inches): 3.00 Weight (Pounds): 152 General Appearance: WD/WN, no apparent distress, alert EENT: PERRL/EOMI, normal ENT inspection Neck: non-tender, normal alignment, supple Cardiovascular: normal peripheral pulses, normal rate, regular rhythm, no gallop/murmur, no JVD Respiratory/Chest: chest wall non-tender, lungs clear, normal breath sounds, no respiratory distress, no accessory muscle use Abdomen: normal bowel sounds, non tender, soft Extremities: normal range of motion, non-tender, normal inspection, no calf tenderness Neurologic: alert, oriented x 3, responsive, normal mood/affect Skin: normal pigmentation, warm/dry, no diaphoresis GERMAN VIEIRA Apr 02, 2016 19:32
[2016-04-02 20:00] VITALS: BP 115/69
--- NOTE | 2016-04-02 22:18 | Progress Note ---
SUBJECTIVE: The patient is doing well. She is complaining of pain, which is appropriate due to the situation she is in. No behavior issues. Calm and cooperative. Cooperative with the staff. MENTAL STATUS EXAMINATION: Alert and oriented x4. Mood is slightly anxious. Affect is constricted. Congruent mood. Thought process is concrete. Thought content, there is no suicidal or homicidal ideations. ASSESSMENT: Stable. PLAN: Provide the patient with supportive therapy and reality orientation. Lola Ugarte M.D. DR: YOHANA JOB#: [id number] CC:
[2016-04-02] MEDS ORDERED: LORazepam 1mg tab ORAL PRN (22:30)
[2016-04-02] MEDS ORDERED: Morphine Sulfate 4mg/ml Inj SUBQ PRN (22:30)
[2016-04-02] MEDS ORDERED: Morphine Sulfate 2mg/ml Inj IVP PRN (22:30)
[2016-04-02] MEDS ORDERED: Naloxone 0.4mg/ml Inj IVP PRN (22:30)
[2016-04-03] VITALS: BP 109/62
[2016-04-03] MEDS: PCA Morphine 1mg/ml 30 ML IV PRN ×2 (00:36→20:22)
[2016-04-03 04:00] VITALS: BP 116/70
[2016-04-03] MEDS: Ampicillin/Sulbactam Sod 3 GM in D5W 110 ML IVPB SCH ×5 (05:34→18:04)
[2016-04-03] MEDS: Heparin 5000 units/ml inj SUBQ SCH ×3 (06:00→21:09)
[2016-04-03] MEDS: PCA shift volume MISC SCH ×3 (07:28→23:38)
[2016-04-03 08:00] VITALS: BP 101/63
--- NOTE | 2016-04-03 08:39 | General Progress Note ---
Assessment/Plan Assessment/Plan (1) B/L buttock and back soft tissue necrosis, cellulitis (2) S/p staged debridement of b/l buttock and back necrotic soft tissue, flap delay and vac placement (3) Intractable pain The patient will continue on the AREA COORDINATOR Morphine, and morphine IV. The patient was discussed with Dr. Rubin and Dr. Rubin concurred. Subjective Date patient seen: Apr 03, 2016 Time patient seen: 06:45 - am Allergies: Coded Allergies: No Known Allergies (Unverified , 03/30/16) Subjective REVIEW OF SYSTEMS: Denies rash, fever, chills, sweating, dizziness, drowsiness, blurred vision, sore throat, or change in her weight. No shortness of breath or chest pain. No nausea, vomiting, diarrhea, or blood in the stool or urine. No bowel or bladder incontinence. No dysuria. Complaining of back and buttock pain. SUBJECTIVE: Pt is comfortable at this time and is looking forward to surgery today. The AREA COORDINATOR was changed to Morphine 1mg lockout Q6min. Due to nausea and no pain relief on the Dilaudid. Objective Last 24 Hour Vital Signs Date Time Temp Pulse Resp B/P Pulse Ox O2 Delivery O2 Flow Rate FiO2 04/03/16 04:00 17 04/03/16 04:00 97.5 83 18 116/70 97 Room Air 04/03/16 00:00 98.1 84 18 109/62 97 Room Air 04/03/16 00:00 17 04/02/16 20:00 97.9 79 20 115/69 98 Room Air 04/02/16 19:00 16 04/02/16 16:18 97.9 95 18 118/62 97 Room Air 04/02/16 15:00 16 04/02/16 14:08 76 20 97 04/02/16 12:00 16 04/02/16 12:00 97.0 103 18 119/69 93 Room Air Intake and Output 04/02/16 04/03/16 19:00 07:00 Intake Total 680 ml Output Total 140 ml Balance 540 ml Intake Oral 680 ml Other 140 ml # Voids 5 Height (Feet): 5 Height (Inches): 3.00 Weight (Pounds): 152 Objective PHYSICAL EXAMINATION: GENERAL: Alert, awake, and oriented x3. HEENT: PERRLA. NECK: Range of motion is full in all directions. No tenderness to the paracervical muscles. No adenopathy. LUNGS: Clear. HEART: Regular. ABDOMEN: Benign. BACK: Range of motion is decreased in flexion and extension with tenderness to paraspinal muscles with wound VAC seen and placed with tenderness to palpation on the buttock area. EXTREMITIES: No cyanosis. No clubbing. No edema. NEURO: No changes. JOSHUA BEYER Apr 03, 2016 08:39
[2016-04-03 10:21] LABS: IMMUNCOMPLEX BY C1Q BINDING < 1.2 ug Eq/mL (.)
[2016-04-03 12:00] VITALS: BP 110/67
--- NOTE | 2016-04-03 12:09 | Diagnostic Imaging Report ---
Indication: SOB Technique: One view of the chest Comparison: none Findings: Lungs and pleural spaces are clear. Heart size is normal Impression: No acute process
--- NOTE | 2016-04-03 14:46 | General Progress Note ---
Assessment/Plan Problem List: (1) Intractable low back pain Assessment & Plan: s/p I+D of buttocks, POD#2 CXR normal Cont postop care Cont pain control Supp care f/u Extensive lab workup to r/o KIMBERLYN syndrome given classical symptoms and presentation f/u blood cultures Cont IV unasyn ICD Codes: M54.5 - Low back pain SNOMED: [id number] Subjective Date patient seen: Apr 03, 2016 Time patient seen: 14:45 ROS Limited/Unobtainable: No Constitutional: Denies: chills, diaphoresis, fever, malaise, no symptoms, other , weakness HEENT: Denies: blurred vision, double vision, ear discharge, ear pain, eye pain , mouth pain, mouth swelling, no symptoms, nose congestion, nose pain, other, tearing, throat pain, throat swelling Cardiovascular: Denies: chest pain, edema, irregular heart rate, lightheadedness, no symptoms, other, palpitations, syncope Respiratory: Denies: SOB at rest, SOB with excertion, cough, no symptoms, orthopnea, other, shortness of breath, sputum, stridor, wheezing Gastrointestinal/Abdominal: Denies: abdomen distended, abdominal pain, black stools, blood in stool, constipated, diarrhea, difficulty swallowing, nausea, no symptoms, other, poor appetite, poor fluid intake, rectal bleeding, tarry stools, vomiting Genitourinary: Denies: burning, discharge, flank pain, frequency, hematuria, incontinence, no symptoms, other, pain, urgency Neurologic/Psychiatric: Denies: anxiety, depressed, emotional problems, headache, no symptoms, numbness, other, paresthesia, pre-existing deficit, seizure, tingling, tremors, weakness Endocrine: Denies: excessive sweating, flushing, increased hunger, increased thirst, increased urine, intolerance to cold, intolerance to heat, no symptoms, other, unexplained weight gain, unexplained weight loss Hematologic/Lymphatic: Denies: anemia, easy bleeding, easy bruising, no symptoms, other Allergies: Coded Allergies: No Known Allergies (Unverified , 03/30/16) Subjective s/p I+D of buttocks POD#2, postop pain well controlled on ALARM INSTALLER, no chest pain or dyspnea Objective Last 24 Hour Vital Signs Date Time Temp Pulse Resp B/P Pulse Ox O2 Delivery O2 Flow Rate FiO2 2/9/17 12:00 98.9 76 20 110/67 98 Room Air 04/03/16 08:00 97.2 77 20 101/63 100 Room Air 04/03/16 04:00 17 04/03/16 04:00 97.5 83 18 116/70 97 Room Air 04/03/16 00:00 98.1 84 18 109/62 97 Room Air 04/03/16 00:00 17 04/02/16 20:00 97.9 79 20 115/69 98 Room Air 04/02/16 19:00 16 04/02/16 16:18 97.9 95 18 118/62 97 Room Air 04/02/16 15:00 16 Intake and Output 04/02/16 04/03/16 19:00 07:00 Intake Total 680 ml Output Total 140 ml Balance 540 ml Intake Oral 680 ml Other 140 ml # Voids 5 Height (Feet): 5 Height (Inches): 3.00 Weight (Pounds): 152 Objective General: alert, cooperative, no distress, appears stated age Head: normocephalic, without obvious abnormality, atraumatic Eyes: conjunctivae/corneas clear. PERRL, EOM's intact Throat: lips, mucosa, and tongue normal. MMM Neck: supple, symmetrical, trachea midline, and no JVD Lungs: clear to auscultation bilaterally Heart: regular rate and rhythm, S1, S2 normal, no murmur, click, rub or gallop Abdomen: soft, non-tender, non-distended, bowel sounds normal; no masses or organomegaly Extremities: extremities normal, atraumatic, no cyanosis or edema Pulses: 2+ and symmetric Skin: skin color, texture, turgor normal; no rashes or lesions Neurologic: grossly normal, no focal deficits GERMAN VIEIRA Apr 03, 2016 14:46
[2016-04-03 16:00] VITALS: BP 109/59
[2016-04-03 20:00] VITALS: BP 106/59
[2016-04-03] MEDS: LR 1000ml 1,000 ML IV SCH (21:13)
[2016-04-04] VITALS (11 sets, daily range): BP systolic 111–142; BP diastolic 72–91
[2016-04-04] MEDS ORDERED: LR 1000ml 1,000 ML IV SCH
[2016-04-04] MEDS: Heparin 5000 units/ml inj SUBQ SCH ×3 (05:04→21:58)
[2016-04-04] MEDS: Ampicillin/Sulbactam Sod 3 GM in D5W 110 ML IVPB SCH ×5 (06:14→19:15)
[2016-04-04] MEDS: LR 1000ml 1,000 ML IV SCH ×3 (06:14→21:30)
[2016-04-04] MEDS: PCA shift volume MISC SCH ×3 (07:03→23:00)
--- NOTE | 2016-04-04 09:32 | General Progress Note ---
Assessment/Plan Assessment/Plan (1) B/L buttock and back soft tissue necrosis, cellulitis (2) S/p staged debridement of b/l buttock and back necrotic soft tissue, flap delay and vac placement (3) Intractable pain The patient will continue on the FENCE POST CUTTER Morphine, and morphine IV. We will start [place] 10/325mg PO 1 tab Q4H PRN Mild pain. A RX for [place] 10/325mg PO 1 tab Q4-6H PRN pain 30 tabs written for discharge. The patient was discussed with Dr. Rubin and Dr. Rubin concurred. Subjective Date patient seen: Apr 04, 2016 Time patient seen: 07:30 - am Allergies: Coded Allergies: No Known Allergies (Unverified , 03/30/16) Subjective REVIEW OF SYSTEMS: Denies rash, fever, chills, sweating, dizziness, drowsiness, blurred vision, sore throat, or change in her weight. No shortness of breath or chest pain. No nausea, vomiting, diarrhea, or blood in the stool or urine. No bowel or bladder incontinence. No dysuria. Complaining of back and buttock pain. SUBJECTIVE: She is looking forward to next surgery today. Pain is a 6/10 and is reduced on the medication using 24.92mg of the FENCE POST CUTTER morphine. Objective Last 24 Hour Vital Signs Date Time Temp Pulse Resp B/P Pulse Ox O2 Delivery O2 Flow Rate FiO2 04/04/16 08:00 97.7 78 20 112/73 98 Room Air 04/04/16 08:00 18 04/04/16 04:00 18 04/04/16 00:59 97.5 75 21 111/72 98 Room Air 04/04/16 00:00 18 04/03/16 20:00 98.2 96 18 106/59 95 Room Air 04/03/16 20:00 20 04/03/16 16:00 98.1 84 18 109/59 96 Room Air 04/03/16 15:32 20 04/03/16 12:00 98.9 76 20 110/67 98 Room Air Intake and Output 04/03/16 04/04/16 19:00 07:00 Intake Total 650 ml 900 ml Output Total 50 ml 500 ml Balance 600 ml 400 ml Intake Oral 540 ml IV Total 110 ml 900 ml Drainage Total 50 ml Other 500 ml # Voids 2 2 # Bowel Movements 1 Height (Feet): 5 Height (Inches): 3.00 Weight (Pounds): 152 Objective PHYSICAL EXAMINATION: GENERAL: Alert, awake, and oriented x3. HEENT: PERRLA. NECK: Range of motion is full in all directions. No tenderness to the paracervical muscles. No adenopathy. LUNGS: Clear. HEART: Regular. ABDOMEN: Benign. BACK: Range of motion is decreased in flexion and extension with tenderness to paraspinal muscles with wound VAC seen and placed with tenderness to palpation on the buttock area. EXTREMITIES: No cyanosis. No clubbing. No edema. NEURO: No changes. JOSHUA BEYER Apr 04, 2016 09:32
[2016-04-04] MEDS ORDERED: Norco 10mg/325mg tab ORAL PRN (10:00)
[2016-04-04] MEDS ORDERED: Morphine Sulfate 2mg/ml Inj IVP PRN (10:00)
[2016-04-04] MEDS ORDERED: Naloxone 0.4mg/ml Inj IVP PRN (10:00)
[2016-04-04] MEDS ORDERED: Morphine Sulfate 4mg/ml Inj SUBQ PRN (10:00)
--- NOTE | 2016-04-04 10:21 | Anethesia Preoperative Eval ---
Anesthesia Pre-op PMH/ROS General Date of Evaluation: Apr 04, 2016 Anesthesiologist: Elgin ASA Score: ASA 1 Mallampati Score Class I : Soft palate, uvula, fauces, pillars visible Class II: Soft palate, uvula, fauces visible Class III: Soft palate, base of uvula visible Class IV: Only hard plate visible Mallampati Classification: Class II Surgeon: Drake Diagnosis: Bilateral buttocks necrotic soft tissue Surgical Procedure: Stage 2 soft tissue debriedment and closure bilateral buttocks Anesthesia History: none Family History: no anesthesia problems Allergies: Coded Allergies: No Known Allergies (Unverified , 03/30/16) Medications: see eMAR Past Medical History Cardiovascular: Reports: other - surgical repair of ? heart defect at age 9, Denies: CAD, HTN, RI, arrhythmia, valve dz Pulmonary: Denies: COPD, HEATH, asthma, other Gastrointestinal/Genitourinary: Denies: CRI, ESRD, GERD, other Neurologic/Psychiatric: Denies: CVA, TIA, dementia, depression/anxiety, other Endocrine: Denies: DM, hypothyroidism, other, steroids HEENT: Denies: [place] (L), [place] (R), cataract (L), cataract (R), glaucoma, other Hematology/Immune: Denies: DVT, anemia, bleeding disorder, other Musculoskeletal/Integumentary: Denies: DDD, DJD, OA, RA, edema, other PSxH Narrative: surgical repair of ? heart defect at age 9 Anesthesia Pre-op Phys. Exam Physician Exam Last Vital Signs Date Time Temp Pulse Resp B/P Pulse Ox O2 Delivery O2 Flow Rate FiO2 04/04/16 08:00 97.7 78 20 112/73 98 Room Air 04/02/16 07:55 21 04/02/16 00:00 3.0 Constitutional: NAD Cardiovascular: RRR Respiratory: CTA Airway Exam Mallampati Score: Class II MO: full ROM: full Teeth: intact Anesthesia Pre-op A/P Labs see chart Risk Assessment & Plan Assessment: ASA I Plan: GA Status Change Before Surgery: No Pre-Antibiotics Drug: Unasyn 3g Given Within 1 Hr of Incision: Yes FLORA STOKES M.D. Apr 04, 2016 10:21
[2016-04-04] MEDS ORDERED: LR 1000ml 1,000 ML IVLG SCH (10:39)
--- NOTE | 2016-04-04 10:39 | Immediate Post-Op Evaluation ---
Immediate Post-Op Evalulation Immediate Post-Op Evalulation Procedure: Debridement of soft tissue necrotic tissue in low back Date of Evaluation: Apr 04, 2016 Time of Evaluation: 15:04 IV Fluids: 1.5L Blood Products: 0 Estimated Blood Loss: 250 Urinary Output: 0 Blood Pressure Systolic: 119 Blood Pressure Diastolic: 78 Pulse Rate: 87 Respiratory Rate: 16 O2 Sat by Pulse Oximetry: 100 Temperature (Fahrenheit): 97.6 Pain Score (1-10): 0 Nausea: No Vomiting: No Complications 0 Patient Status: awake, reacts, patent, none Hydration Status: adequate Drug: Unasyn 3g Given Within 1 Hr of Incision: Yes Time Given: 10:50 FLORA STOKES M.D. Apr 04, 2016 10:39
--- NOTE | 2016-04-04 10:42 | Pre-Procedure Note/Attestation ---
Pre-Procedure Note/Attestation Complete Prior to Procedure Planned Procedure: bilateral Procedure Narrative: staged debridement of bilateral buttock and hip necrotic soft tissue, advancement flap closure Indications for Procedure Pre-Operative Diagnosis: b/l buttock and hip necrotic soft tissue Attestation I attest that I discussed the nature of the procedure; its benefits; risks and complications; and alternatives (and the risks and benefits of such alternatives ), prior to the procedure, with the patient (or the patient's legal food products sales representative). I attest that, if there was a reasonable possibility of needing a blood transfusion, the patient (or the patient's legal food products sales representative) was given the [facility] standardized written summary, pursuant to the [place] Blood Safety Act ([place] Health and Safety Code # 1645, as amended). I attest that I re-evaluated the patient just prior to the surgery and that there has been no change in the patient's H&P, except as documented below: Viola Calles M.D. (Steven) Apr 04, 2016 10:42
[2016-04-04] MEDS ORDERED: LORazepam Inj 2mg/ml 1ml IV PRN (10:45)
[2016-04-04] MEDS ORDERED: Labetalol 5mg/ml 20ml vial IV PRN (10:45)
[2016-04-04] MEDS ORDERED: DiphenhydrAMINE 50mg/ml Inj IVP PRN (10:45)
[2016-04-04] MEDS ORDERED: Hydromorphone 0.5mg/0.5ml inj IVP PRN (10:45)
[2016-04-04] MEDS ORDERED: fentaNYL 100 mcg/2 mL IV PRN (10:45)
[2016-04-04] MEDS ORDERED: Metoclopramide 10mg/2ml Inj IVP PRN (10:45)
[2016-04-04] MEDS ORDERED: Midazolam 2mg/2ml Inj IVP PRN (10:45)
[2016-04-04] MEDS ORDERED: fentaNYL 250mcg/5ml ONE (11:00)
[2016-04-04] MEDS ORDERED: Lidocaine 1% MPF 10mg/ml 5ml ONE (11:00)
[2016-04-04] MEDS ORDERED: Propofol 10mg/ml 20ml IV ONE (11:00)
[2016-04-04] MEDS ORDERED: Midazolam 2mg/2ml Inj ONE (11:00)
[2016-04-04] MEDS ORDERED: PCA HYDROmorphone 1mg/ml 30 ML IV PRN (11:00)
[2016-04-04] MEDS ORDERED: Metoclopramide 10mg/2ml Inj ONE (11:00)
[2016-04-04] MEDS ORDERED: Sterile Water Irrig 1000ml IRRIG ONE (11:00)
[2016-04-04] MEDS ORDERED: Zemuron 50mg/5ml Inj IV ONE (11:00)
[2016-04-04] MEDS ORDERED: NS Irrig 1000ml ONE (11:00)
[2016-04-04] MEDS ORDERED: LR 1000ml ONE ×2 (11:00→21:14)
[2016-04-04] MEDS ORDERED: Rate Change PCA 1 Each MISC PRN (11:00)
[2016-04-04] MEDS ORDERED: Dexamethasone 4mg/ml vial ONE (11:00)
[2016-04-04] MEDS ORDERED: NS Irrig 1000ml IRRIG ONE (11:11)
[2016-04-04] MEDS: Bacitracin 50000 Units Vial ONE ×2 (11:11→12:39)
[2016-04-04] MEDS ORDERED: PCA shift volume MISC SCH (15:00)
--- NOTE | 2016-04-04 16:09 | Operative Note - PDOC ---
Operative Note Operative Note Pre-op Diagnosis: b/l buttock and hip necrotic soft tissue Procedure: staged debridement of necrotic bilateral buttock and hip soft tissue and advancement flap closure Post-op Diagnosis: same Post-op Diagnosis: same as pre-op Surgeon: dani Casket Upholsterer: ruiz Anesthesiologist: negin Anesthesia: general Specimen: yes Complications: none Estimated Blood Loss: volume - 300 Drains: WILBERTO Implant(s) used?: No Viola Calles M.D. (Steven) Apr 04, 2016 16:09
[2016-04-04] MEDS: PCA Morphine 1mg/ml 30 ML IV PRN ×2 (16:11→21:00)
--- NOTE | 2016-04-04 17:12 | General Progress Note ---
Assessment/Plan Problem List: (1) Intractable low back pain Assessment & Plan: s/p I+D of buttocks, POD#3 s/p stage 2 debridement of buttocks region POD#0 Cont postop care Cont pain control Supp care f/u Extensive lab workup to r/o KIMBERLYN syndrome given classical symptoms and presentation f/u blood cultures Cont IV unasyn ICD Codes: M54.5 - Low back pain SNOMED: [id number] Subjective Date patient seen: Apr 04, 2016 Time patient seen: 17:11 Allergies: Coded Allergies: No Known Allergies (Unverified , 03/30/16) Subjective s/p I+D of buttocks POD#3, s/p stage 2 debridement earlier today, postop pain well controlled on WET PAN OPERATOR, no chest pain or dyspnea Objective Last 24 Hour Vital Signs Date Time Temp Pulse Resp B/P Pulse Ox O2 Delivery O2 Flow Rate FiO2 04/04/16 16:25 14 04/04/16 16:11 15 04/04/16 16:05 98.0 90 22 140/88 100 Nasal Cannula 3.0 04/04/16 16:00 97.7 96 19 126/82 100 04/04/16 15:50 88 18 137/89 100 Nasal Cannula 3.0 04/04/16 15:35 83 18 142/91 100 Nasal Cannula 3.0 04/04/16 15:20 85 15 141/91 100 Nasal Cannula 3.0 04/04/16 15:05 96 16 135/88 100 Simple Mask 6.0 04/04/16 15:00 91 15 138/89 100 Simple Mask 6.0 04/04/16 14:58 87 16 100 04/04/16 14:56 97.6 87 22 119/78 100 Simple Mask 6.0 04/04/16 08:00 97.7 78 20 112/73 98 Room Air 04/04/16 08:00 18 04/04/16 04:00 18 04/04/16 00:59 97.5 75 21 111/72 98 Room Air 04/04/16 00:00 18 04/03/16 20:00 98.2 96 18 106/59 95 Room Air 04/03/16 20:00 20 Intake and Output 04/03/16 04/04/16 18:59 06:59 Intake Total 650 ml 900 ml Output Total 50 ml 500 ml Balance 600 ml 400 ml Intake Oral 540 ml IV Total 110 ml 900 ml Drainage Total 50 ml Other 500 ml # Voids 2 2 # Bowel Movements 1 Height (Feet): 5 Height (Inches): 3.00 Weight (Pounds): 152 Objective General: alert, cooperative, no distress, appears stated age Head: normocephalic, without obvious abnormality, atraumatic Eyes: conjunctivae/corneas clear. PERRL, EOM's intact Throat: lips, mucosa, and tongue normal. MMM Neck: supple, symmetrical, trachea midline, and no JVD Lungs: clear to auscultation bilaterally Heart: regular rate and rhythm, S1, S2 normal, no murmur, click, rub or gallop Abdomen: soft, non-tender, non-distended, bowel sounds normal; no masses or organomegaly Extremities: extremities normal, atraumatic, no cyanosis or edema Pulses: 2+ and symmetric Skin: skin color, texture, turgor normal; no rashes or lesions Neurologic: grossly normal, no focal deficits GERMAN VIEIRA Apr 04, 2016 17:12
--- NOTE | 2016-04-04 17:41 | 48 Hour Post Anesthesia Eval ---
Post Anesthesia Evaluation Procedure: Debridement of soft tissue necrotic tissue in low back Date of Evaluation: Apr 04, 2016 Time of Evaluation: 17:39 Blood Pressure Systolic: 119 0: 73 Pulse Rate: 99 Respiratory Rate: 18 Temperature (Fahrenheit): 98.2 O2 Sat by Pulse Oximetry: 99 Airway: patent Nausea: No Vomiting: No Pain Intensity: 2 Hydration Status: adequate Cardiopulmonary Status: Stable Mental Status/LOC: patient returned to baseline Follow-up Care/Observations: 0 Post-Anesthesia Complications: 0 Follow-up care needed: N/A Austin Christensen MD Apr 04, 2016 17:41
[2016-04-04] MEDS ORDERED: Tubing IV Secondary IV ONE (21:14)
[2016-04-05] VITALS: BP 112/63
[2016-04-05] MEDS: Ampicillin/Sulbactam Sod 3 GM in D5W 110 ML IVPB SCH ×4 (00:17→18:01)
[2016-04-05] MEDS: LR 1000ml 1,000 ML IV SCH ×3 (02:11→20:53)
[2016-04-05 04:00] VITALS: BP 113/67
[2016-04-05] MEDS: Heparin 5000 units/ml inj SUBQ SCH ×3 (05:20→21:01)
[2016-04-05 07:26] LABS: BASOPHILS % (AUTO) 0.7 % (0.0-2.0); EOSINOPHILS % (AUTO) 1.2 % (0.0-3.0); LYMPHOCYTES % (AUTO) 22.6 % (20.0-45.0); MEAN CORPUSCULAR HEMOGLOBIN 32.7 PG (27.0-31.0); MEAN CORPUSCULAR HGB CONC 33.7 G/DL (32.0-36.0); MEAN CORPUSCULAR VOLUME 97 FL (80-99); MEAN PLATELET VOLUME 11.6 FL (6.5-10.1); MONOCYTES % (AUTO) 8.8 % (1.0-10.0); NEUTROPHILS % (AUTO) 66.6 % (45.0-75.0); PLATELET COUNT 189 K/UL (150-450); RED BLOOD COUNT 3.35 M/UL (4.20-5.40); RED CELL DISTRIBUTION WIDTH 11.4 % (11.6-14.8); WHITE BLOOD COUNT 15.2 K/UL (4.8-10.8)
[2016-04-05 07:27] LABS: ANION GAP 11 (5-15); CALCIUM 8.5 mg/dL (8.6-10.2); CARBON DIOXIDE 29 mEQ/L (20-30); CHLORIDE 98 mEQ/L (98-107); CREATININE 0.5 mg/dL (0.5-0.9); GLOMERULAR FILTRATION RATE > 60 mL/min (>60); HEMOLYSIS 6; POTASSIUM 4.3 mEQ/L (3.4-4.9); SODIUM 138 mEQ/L (135-145)
[2016-04-05] MEDS: PCA shift volume MISC SCH ×2 (07:29→15:00)
[2016-04-05 08:00] VITALS: BP 108/63
[2016-04-05 12:00] VITALS: BP 120/70
--- NOTE | 2016-04-05 12:18 | General Progress Note ---
Assessment/Plan Problem List: (1) Intractable low back pain Assessment & Plan: s/p I+D of buttocks, POD#4 s/p stage 2 debridement of buttocks region POD#1 Cont postop care Cont pain control Supp care f/u Extensive lab workup to r/o KIMBERLYN syndrome given classical symptoms and presentation f/u blood cultures Cont IV unasyn ICD Codes: M54.5 - Low back pain SNOMED: [id number] Subjective Date patient seen: Apr 05, 2016 Time patient seen: 12:18 ROS Limited/Unobtainable: No Allergies: Coded Allergies: No Known Allergies (Unverified , 03/30/16) Subjective s/p I+D of buttocks POD#4, s/p stage 2 debridement POD#1, postop pain well 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 on 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, no chest pain or dyspnea Objective Last 24 Hour Vital Signs Date Time Temp Pulse Resp B/P Pulse Ox O2 Delivery O2 Flow Rate FiO2 04/05/16 08:00 97.9 75 19 108/63 100 Nasal Cannula 04/05/16 04:00 97.9 77 21 113/67 100 Nasal Cannula 04/05/16 04:00 16 04/05/16 04:00 97.9 77 21 113/67 100 Nasal Cannula 04/05/16 00:00 15 04/05/16 00:00 97.9 81 21 112/63 100 Nasal Cannula 04/04/16 21:00 16 04/04/16 20:00 98.8 81 17 117/78 96 Nasal Cannula 2.0 04/04/16 17:41 99 18 99 04/04/16 16:25 14 04/04/16 16:11 15 04/04/16 16:05 98.0 90 22 140/88 100 Nasal Cannula 3.0 04/04/16 16:00 97.7 96 19 126/82 100 04/04/16 15:50 88 18 137/89 100 Nasal Cannula 3.0 04/04/16 15:35 83 18 142/91 100 Nasal Cannula 3.0 04/04/16 15:20 85 15 141/91 100 Nasal Cannula 3.0 04/04/16 15:05 96 16 135/88 100 Simple Mask 6.0 04/04/16 15:00 91 15 138/89 100 Simple Mask 6.0 04/04/16 14:58 87 16 100 04/04/16 14:56 97.6 87 22 119/78 100 Simple Mask 6.0 Intake and Output 04/04/16 04/05/16 19:00 07:00 Intake Total 1750 ml 250 ml Output Total 415 ml 418 ml Balance 1335 ml -168 ml IV Total 1750 ml 250 ml Drainage Total 105 ml 298 ml Estimated Blood Loss 250 ml Other 60 ml 120 ml # Voids 1 1 Laboratory Tests 04/05/16 06:40: White Blood Count 15.2H, Red Blood Count 3.35L, Hemoglobin 10.9L, Hematocrit 32.4L, Mean Corpuscular Volume 97, Mean Corpuscular Hemoglobin 32.7H, Mean Corpuscular Hemoglobin Concent 33.7, Red Cell Distribution Width 11.4L, Platelet Count 189, Mean Platelet Volume 11.6H, Neutrophils (%) (Auto) 66.6, Lymphocytes (%) (Auto) 22.6, Monocytes (%) (Auto) 8.8, Eosinophils (%) (Auto) 1.2, Basophils (%) (Auto) 0.7, Sodium Level 138, Potassium Level 4.3, Chloride Level 98, Carbon Dioxide Level 29, Anion Gap 11, Blood Urea Nitrogen 4L, Creatinine 0.5, Estimat Glomerular Filtration Rate > 60, Glucose Level 103, Calcium Level 8.5L Height (Feet): 5 Height (Inches): 3.00 Weight (Pounds): 152 Objective General: alert, cooperative, no distress, appears stated age Head: normocephalic, without obvious abnormality, atraumatic Eyes: conjunctivae/corneas clear. PERRL, EOM's intact Throat: lips, mucosa, and tongue normal. MMM Neck: supple, symmetrical, trachea midline, and no JVD Lungs: clear to auscultation bilaterally Heart: regular rate and rhythm, S1, S2 normal, no murmur, click, rub or gallop Abdomen: soft, non-tender, non-distended, bowel sounds normal; no masses or organomegaly Extremities: extremities normal, atraumatic, no cyanosis or edema Pulses: 2+ and symmetric Skin: skin color, texture, turgor normal; no rashes or lesions Neurologic: grossly normal, no focal deficits GERMAN VIEIRA Apr 05, 2016 12:18
--- NOTE | 2016-04-05 13:08 | General Progress Note ---
Progress Note Progress Note pt without any c/o except lightheadedness AF/VSS H/H stable PE: incisional VAC in place JPs appropriate SS (-) collections/signs of infection A/P. 1. daily CBC 2. OOB/ DVT ppx/cont Abx 3. WILBERTO teaching; cont all 5 WILBERTO's 4. will change to Provena Plus home incisional VAC prior to d/c 5. d/c home Sun/Mon with 2 weeks Cipro 500 PO BID and pain Rx 6. no showers until all drains are out 7. limit supine time to 4 hrs/24 hrs; minimal sitting 8. f/u out pt next Sat 9. transition to oral pain rx Viola Calles M.D. (Steven) Apr 05, 2016 13:08
[2016-04-05] MEDS: PCA Morphine 1mg/ml 30 ML IV PRN (15:11)
[2016-04-05 16:42] VITALS: BP 148/57
[2016-04-05 20:40] VITALS: BP 132/65
[2016-04-06] VITALS: BP 119/61
[2016-04-06] MEDS: PCA shift volume MISC SCH ×2 (00:07→07:00)
[2016-04-06] MEDS: Ampicillin/Sulbactam Sod 3 GM in D5W 110 ML IVPB SCH ×3 (00:45→12:57)
[2016-04-06 04:00] VITALS: BP 109/68
[2016-04-06] MEDS: Heparin 5000 units/ml inj SUBQ SCH ×3 (06:15→21:44)
[2016-04-06] MEDS: LR 1000ml 1,000 ML IV SCH ×2 (06:15→12:58)
[2016-04-06 08:00] VITALS: BP 111/63
[2016-04-06] MEDS ORDERED: Naloxone 0.4mg/ml Inj IVP PRN (09:31)
[2016-04-06] MEDS ORDERED: Norco 10mg/325mg tab ORAL PRN (10:00)
[2016-04-06] MEDS ORDERED: Morphine Sulfate 4mg/ml Inj SUBQ PRN ×2 (10:00→13:00)
[2016-04-06] MEDS ORDERED: Morphine Sulfate 2mg/ml Inj IVP PRN ×2 (10:00→12:00)
[2016-04-06] MEDS ORDERED: PCA Morphine 1mg/ml 30 ML IV PRN (10:00)
--- NOTE | 2016-04-06 10:44 | General Progress Note ---
Assessment/Plan Assessment/Plan (1) B/L buttock and back soft tissue necrosis, cellulitis (2) S/p staged debridement of b/l buttock and back necrotic soft tissue, flap delay and vac placement (3) Intractable pain The patient will continue on the [place] and morphine IV. We will discontinue HAIR WORKER Morphine and start Neurontin 100mg TID. The patient was discussed with Dr. Rubin and Dr. Rubin concurred. Subjective Date patient seen: Apr 06, 2016 Time patient seen: 07:30 - am Allergies: Coded Allergies: No Known Allergies (Unverified , 03/30/16) Subjective REVIEW OF SYSTEMS: Denies rash, fever, chills, sweating, dizziness, drowsiness, blurred vision, sore throat, or change in her weight. No shortness of breath or chest pain. No nausea, vomiting, diarrhea, or blood in the stool or urine. No bowel or bladder incontinence. No dysuria. Complaining of back and buttock pain. SUBJECTIVE: Pain is a 8/10 at its worse and is tolerated on the HAIR WORKER which she has used 45mg of in the last 24hrs. I d/w pt about discontinue the HAIR WORKER and she agrees. Objective Last 24 Hour Vital Signs Date Time Temp Pulse Resp B/P Pulse Ox O2 Delivery O2 Flow Rate FiO2 04/06/16 08:00 98.2 83 20 111/63 97 Room Air 04/06/16 06:00 20 04/06/16 04:00 97.7 89 20 109/68 97 Room Air 04/06/16 00:00 20 04/06/16 00:00 98.1 88 19 119/61 99 Room Air 04/05/16 20:40 97.3 95 19 132/65 98 Room Air 04/05/16 20:00 19 04/05/16 16:42 97.9 84 18 148/57 99 Nasal Cannula 2.0 04/05/16 16:00 19 04/05/16 16:00 97.5 04/05/16 12:00 97.5 88 19 120/70 100 Simple Mask 04/05/16 12:00 Nasal Cannula 2.0 100 04/05/16 11:00 19 Intake and Output 04/05/16 04/06/16 19:00 07:00 Intake Total 892.5 ml 740 ml Output Total 680 ml 289 ml Balance 212.5 ml 451 ml Intake Oral 340 ml 240 ml IV Total 552.5 ml 500 ml Output Urine Total 550 ml 2 ml Drainage Total 85 ml 247 ml Other 45 ml 40 ml # Voids 2 Height (Feet): 5 Height (Inches): 3.00 Weight (Pounds): 152 Objective PHYSICAL EXAMINATION: GENERAL: Alert, awake, and oriented x3. HEENT: PERRLA. NECK: Range of motion is full in all directions. No tenderness to the paracervical muscles. No adenopathy. LUNGS: Clear. HEART: Regular. ABDOMEN: Benign. BACK: Range of motion is decreased in flexion and extension with tenderness to paraspinal muscles with wound VAC seen and placed with tenderness to palpation on the buttock area. EXTREMITIES: No cyanosis. No clubbing. No edema. NEURO: No changes. JOSHUA BEYER Apr 06, 2016 10:43
--- NOTE | 2016-04-06 10:52 | General Progress Note ---
Assessment/Plan Problem List: (1) Intractable low back pain Assessment & Plan: s/p I+D of buttocks, POD#5 s/p stage 2 debridement of buttocks region POD#2 Cont postop care Cont pain control Supp care f/u Extensive lab workup to r/o KIMBERLYN syndrome given classical symptoms and presentation f/u blood cultures Cont IV unasyn ICD Codes: M54.5 - Low back pain SNOMED: [id number] Subjective Date patient seen: Apr 06, 2016 Time patient seen: 10:51 ROS Limited/Unobtainable: No Allergies: Coded Allergies: No Known Allergies (Unverified , 03/30/16) Subjective s/p I+D of buttocks POD#5, s/p stage 2 debridement POD#2, postop pain well controlled on TRANSFER MAN, no chest pain or dyspnea Objective Last 24 Hour Vital Signs Date Time Temp Pulse Resp B/P Pulse Ox O2 Delivery O2 Flow Rate FiO2 04/06/16 08:00 98.2 83 20 111/63 97 Room Air 04/06/16 06:00 20 04/06/16 04:00 97.7 89 20 109/68 97 Room Air 04/06/16 00:00 20 04/06/16 00:00 98.1 88 19 119/61 99 Room Air 04/05/16 20:40 97.3 95 19 132/65 98 Room Air 04/05/16 20:00 19 04/05/16 16:42 97.9 84 18 148/57 99 Nasal Cannula 2.0 04/05/16 16:00 19 04/05/16 16:00 97.5 04/05/16 12:00 97.5 88 19 120/70 100 Simple Mask 04/05/16 12:00 Nasal Cannula 2.0 100 04/05/16 11:00 19 Intake and Output 04/05/16 04/06/16 19:00 07:00 Intake Total 892.5 ml 740 ml Output Total 680 ml 289 ml Balance 212.5 ml 451 ml Intake Oral 340 ml 240 ml IV Total 552.5 ml 500 ml Output Urine Total 550 ml 2 ml Drainage Total 85 ml 247 ml Other 45 ml 40 ml # Voids 2 Height (Feet): 5 Height (Inches): 3.00 Weight (Pounds): 152 Objective General: alert, cooperative, no distress, appears stated age Head: normocephalic, without obvious abnormality, atraumatic Eyes: conjunctivae/corneas clear. PERRL, EOM's intact Throat: lips, mucosa, and tongue normal. MMM Neck: supple, symmetrical, trachea midline, and no JVD Lungs: clear to auscultation bilaterally Heart: regular rate and rhythm, S1, S2 normal, no murmur, click, rub or gallop Abdomen: soft, non-tender, non-distended, bowel sounds normal; no masses or organomegaly Extremities: extremities normal, atraumatic, no cyanosis or edema Pulses: 2+ and symmetric Skin: skin color, texture, turgor normal; no rashes or lesions Neurologic: grossly normal, no focal deficits GERMAN VIEIRA Apr 06, 2016 10:52
[2016-04-06] MEDS: Norco 10mg/325mg tab ORAL PRN ×3 (11:11→21:43)
--- NOTE | 2016-04-06 11:15 | General Progress Note ---
Progress Note Progress Note pt without any c/o AF/VSS H/H stable PE: incisional VAC in place JPs appropriate SS (-) collections/signs of infection A/P. 1. OOB/ DVT ppx/cont Abx 2. WILBERTO teaching; cont all 5 WILBERTO's 3. switched to Provena Plus home incisional VAC 5. d/c home Sun/Mon with 2 weeks Cipro 500 PO BID and pain Rx 6. no showers until all drains are out 7. limit supine time to 4 hrs/24 hrs; minimal sitting 8. f/u out pt next Sat 9. transition to oral pain rx Viola Calles M.D. (Steven) Apr 06, 2016 11:15
[2016-04-06 12:04] VITALS: BP 123/78
[2016-04-06 12:05] LABS: BASOPHILS % (AUTO) 0.9 % (0.0-2.0); EOSINOPHILS % (AUTO) 1.5 % (0.0-3.0); LYMPHOCYTES % (AUTO) 24.5 % (20.0-45.0); MEAN CORPUSCULAR HEMOGLOBIN 32.4 PG (27.0-31.0); MEAN CORPUSCULAR HGB CONC 33.2 G/DL (32.0-36.0); MEAN CORPUSCULAR VOLUME 98 FL (80-99); MEAN PLATELET VOLUME 11.7 FL (6.5-10.1); MONOCYTES % (AUTO) 6.9 % (1.0-10.0); NEUTROPHILS % (AUTO) 66.2 % (45.0-75.0); PLATELET COUNT 190 K/UL (150-450); RED BLOOD COUNT 3.11 M/UL (4.20-5.40); RED CELL DISTRIBUTION WIDTH 11.8 % (11.6-14.8); WHITE BLOOD COUNT 12.5 K/UL (4.8-10.8)
[2016-04-06] MEDS ORDERED: PCA shift volume MISC SCH (15:00)
[2016-04-06 16:00] VITALS: BP 112/64
[2016-04-06 20:00] VITALS: BP 128/70
[2016-04-07] VITALS: BP 122/75
[2016-04-07] MEDS: Norco 10mg/325mg tab ORAL PRN ×3 (02:24→11:10)
[2016-04-07 04:00] VITALS: BP 99/65
[2016-04-07] MEDS: Heparin 5000 units/ml inj SUBQ SCH (06:00)
[2016-04-07 08:00] VITALS: BP 110/64
--- NOTE | 2016-04-07 08:39 | General Progress Note ---
Assessment/Plan Assessment/Plan (1) B/L buttock and back soft tissue necrosis, cellulitis (2) S/p staged debridement of b/l buttock and back necrotic soft tissue, flap delay and vac placement (3) Intractable pain The patient will continue on the [place], morphine IV and Neurontin. The patient was discussed with Dr. Rubin and Dr. Rubin concurred. Subjective Date patient seen: Apr 07, 2016 Time patient seen: 06:45 - am Allergies: Coded Allergies: No Known Allergies (Unverified , 03/30/16) Subjective REVIEW OF SYSTEMS: Denies rash, fever, chills, sweating, dizziness, drowsiness, blurred vision, sore throat, or change in her weight. No shortness of breath or chest pain. No nausea, vomiting, diarrhea, or blood in the stool or urine. No bowel or bladder incontinence. No dysuria. Complaining of back and buttock pain. SUBJECTIVE: Pain has reduced and is a 4/10 at this time Objective Last 24 Hour Vital Signs Date Time Temp Pulse Resp B/P Pulse Ox O2 Delivery O2 Flow Rate FiO2 04/07/16 07:44 98.4 04/07/16 04:00 98.1 77 18 99/65 98 Room Air 04/07/16 00:00 98.4 83 18 122/75 98 Room Air 04/06/16 20:00 98.1 70 18 128/70 95 Room Air 04/06/16 18:08 98.1 04/06/16 16:00 97.9 76 18 112/64 99 Room Air 04/06/16 12:04 98.1 93 20 123/78 100 Room Air Intake and Output 04/06/16 04/07/16 19:00 07:00 Intake Total 1605.0 ml 240 ml Output Total 126 ml 173 ml Balance 1479.0 ml 67 ml Intake Oral 240 ml 240 ml IV Total 1365.0 ml Drainage Total 81 ml 118 ml Other 45 ml 55 ml # Voids 1 2 # Bowel Movements 1 Laboratory Tests 04/06/16 11:30: White Blood Count 12.5H, Red Blood Count 3.11L, Hemoglobin 10.1L, Hematocrit 30.3L, Mean Corpuscular Volume 98, Mean Corpuscular Hemoglobin 32.4H, Mean Corpuscular Hemoglobin Concent 33.2, Red Cell Distribution Width 11.8, Platelet Count 190, Mean Platelet Volume 11.7H, Neutrophils (%) (Auto) 66.2, Lymphocytes (%) (Auto) 24.5, Monocytes (%) (Auto) 6.9, Eosinophils (%) (Auto) 1.5, Basophils (%) (Auto) 0.9 Height (Feet): 5 Height (Inches): 3.00 Weight (Pounds): 152 Objective PHYSICAL EXAMINATION: GENERAL: Alert, awake, and oriented x3. HEENT: PERRLA. NECK: Range of motion is full in all directions. No tenderness to the paracervical muscles. No adenopathy. LUNGS: Clear. HEART: Regular. ABDOMEN: Benign. BACK: Range of motion is decreased in flexion and extension with tenderness to paraspinal muscles with wound VAC seen and placed with tenderness to palpation on the buttock area. EXTREMITIES: No cyanosis. No clubbing. No edema. NEURO: No changes. JOSHUA BEYER Apr 07, 2016 08:39
[2016-04-07] MEDS ORDERED: Morphine Sulfate 4mg/ml Inj IVP PRN (08:45)
[2016-04-07] MEDS ORDERED: NORCO 10-325 T1 EACH ORAL (10:07)
[2016-04-07] MEDS ORDERED: CIPRO500 MG PO (10:09)
[2016-04-07 12:03] VITALS: BP 115/74
--- NOTE | 2016-04-07 14:02 | Discharge Summary ---
Discharge Summary Hospital Course Date of Admission Mar 30, 2016 at 13:02 Date of Discharge Apr 07, 2016 at 12:05 Admitting Diagnosis Intractable back pain Reason for Hospitalization: intractable low back pain CHELSEA Coleman is a 31 year old female who was admitted on Mar 30, 2016 at 13: 02 for Intractable Back Pain Consultations Plastic Surgery Procedures See Operative Reports Hospital Course 31 y/o female with hx of silicone injections into the buttocks area, presented with uncontrolled low back pain, radiculopathy, buttocks pain/burning. Admitted for pain control and further evaluation. Lab workup was done to r/o KIMBERLYN syndrome. Plastic surgery was consulted, MRI showed granulomas throughout. She was taken to surgery for extensive debridement of soft tissue necrotic areas, no periop or postop complications. After stability of the wound, ability to ambulate and tolerating PO pain meds, pt was dced home with a wound vac and drains in place on Cipro, iron and norco, will f/u with plastic surgery on Thursday, 04/11 for outpt followup. Discharge Medications Continued Medications: Ciprofloxacin* (Cipro*) 500 Mg Tablet 500 MG PO BID, #28 TAB Hydrocodone Bit/Acetaminophen 10-325* ([place] 10-325*) 1 Each Tablet 1 TAB ORAL Q4H PRN for For Pain, #30 TAB 0 Refills PRN PAIN Discontinued Medications: Ibuprofen (Ibuprofen*) 200 Mg Tablet 400 MG ORAL FOUR TIMES A DAY, #30 TAB 0 Refills Tramadol Hcl* (Ultram*) 50 Mg Tablet 50 MG ORAL Q6H PRN for For Pain, #30 TAB 0 Refills Discharge Condition Upon Discharge: stable Discharge Disposition Patient was discharged to Home () Discharge Diagnoses: (1) Intractable low back pain GERMAN VIEIRA Apr 07, 2016 14:02
--- NOTE | 2016-04-08 02:19 | Operative Note - Dictated ---
DATE OF OPERATION: 04/01/2016 SURGEON: Viola CALLES M.D. TRUCK SALES MANAGER: Luz Juan M.D. ANESTHESIOLOGIST: Wes Watters M.D. ANESTHESIA: General endotracheal tube anesthesia. PREOPERATIVE DIAGNOSES: As follows: 1. Bilateral buttocks and hips, and back soft tissue necrosis secondary to foreign body reaction. 2. Cellulitis of bilateral buttocks. POSTOPERATIVE DIAGNOSES: 1. Bilateral buttocks and hips, and back soft tissue necrosis secondary to foreign body reaction. 2. Cellulitis of bilateral buttocks. PROCEDURE PERFORMED: As follows: 1. Staged partial removal of foreign material, radically from bilateral buttocks, hips, and back. 2. Elevation and delay of right inferiorly base gluteal fasciocutaneous flap. 3. Elevation and delay of left inferiorly based gluteal fasciocutaneous flap. 4. Elevation and delay of lumbar spine fasciocutaneous flap. 5. Radical resection of 300 cm2 of right buttock necrotic soft tissue mass. 6. Radical resection of 225 cm2 of necrotic left buttock soft tissue mass. 7. Radical resection of 91 cm2 of right back back necrotic soft tissue mass. 8. Radical resection of 70 cm2 of necrotic left back necrotic soft tissue. 9. Debridement of bilateral gluteus nicolasa necrotic muscle. 10. VAC placement to bilateral buttocks. INDICATIONS: As follows: This is a 31-year-old female who I previously dictated a consultation on when she was admitted to the hospital on 03/30/2016 complaining of significant and severe incapacitating bilateral buttock as well as back pain. The patient was evaluated and cleared by the medical team Dr. Shah, who worked up for KIMBERLYN syndrome with blood work and treated with IV antibiotics for cellulitis. She was seen by a psychiatrist as well. MRIs of the lumbar spine and pelvis shows significant infiltration of the subcutaneous tissues of the lumbar spine at the L2 as well as significant bilateral buttock, infiltration of the soft tissue including significant amount of gluteus nicolasa muscle necrosis. This is the inciting cause of the patient's recurrent infection and cellulitis as well as likely the cause of the paresthesias and acute numbness that she presented to the emergency room with for pressure on paraspinal nerve as well as sciatic nerve. The psychiatrists who was cleared the patient, so she understands that she is about to undergo that this is a staged partial debridement radicle of foreign material that was in injected in her buttocks and hips. There is no guarantee she would get better. There is possibilities should be get worse and the silicone may migrate and I certainly would not going to take all of it out and that would be impossible to do and this is strong likely at this time silicone is already migrated from her buttocks to her back and other parts of her body. I also explained to the patient this is the potential for being cosmetically disfiguring and there could be a very poor cosmetic outcome. The benefits of proposed operation is to debulk and remove as much of the foreign body burden as possible. This will take the pressure off of her nerve of her spine and her legs, and buttocks in order to relieve her pain. It would also allow her so she is no longer prone to recurrent infections and opportunistic infections and prevent further migration of the material to other parts of her body. In the past couple of days, Dr. Shah worked the patient up to rule out KIMBERLYN syndrome for which she ordered blood work and treated her cellulitis with antibiotics, which is improved. She has been on pain control from the pain management team for incapacitating significant buttock and back pain. I told the patient this is going to be a staged procedure and the goal would be 2 surgeries, the first one today. I raised the fasciocutaneous flaps in the back and bilateral buttocks. I can see the viability of skin flaps so there were incredible amount of debulking that is going to occur. I said that since the large amount of debulking is going to occur the flaps may become nephrotic at distal edges, thus might loosing elevating and delaying the flaps and treating over the VAC in the interim. This will allow us to reevaluate the flaps and the VAC would also suck out bacteria and foreign material. I explained to the patient it is unknown how much of the foreign material I will take out, but I told her to take out what ever is visible and palpable in a safe manner. Again, I reiterated this could be cosmetically disfiguring. She could have poor scarring. Her wound may breakdown. She may need multiple reconstructive surgeries over the next 10 years and her buttocks may come out significantly deformed. I told her that firstly if she did nothing, she is at high risk of having a skin and eventually a whole buttocks necrosis and this would require much more radicle surgery. The risks and benefits of the proposed operation including, but not limited to bleeding, hematoma, seroma, infection, DVT, PE, MS, , necrosis of the skin flaps, open wounds, delayed healing, hypertrophic scarring, keloid scarring, skin necrosis, damage to sensory to motor nerves, difficulty ambulating, chronic pain and embolization of the silicone to other parts of body were discussed with the patient and all questions answered. DESCRIPTION OF THE PROCEDURE: The patient was taken to the operating room given 5000 units of Heparin subcutaneously as well as preop antibiotics were confirmed. In the preop holding area, a low-transverse incision was made about 5 cm above the most superior aspect of the gluteal cleft. This incision was marked. Correlating her physical exam to the nodule and tenderness to the MRI, markings were done in the operating room after SCDs were placed in bilateral lower extremities, the patient prior to the induction of general anesthesia in supine position, the patient was then flipped in the prone position, after appropriate position and padding on the operating room table. The markings were reinforced. The buttocks and back were then prepped and draped in the usual sterile manner. The anus was protected with a blue towel and Ioban dressing. It was previously explained to the patient through this low transverse incision of the very complex operation, that will require 2 operations to get down to the inferior gluteal crease, correlating with the MRI. Her MRI showed significant necrosis of bilateral buttock gluteal nicolasa muscle in the inferolateral portion. I told her we will have to probably chunk out a lot of her muscle that this should not affect her clinically. Using a #10 scalpel, we dissected down through the skin and used electrocautery and dissected all way down to the deep muscle fascia of the gluteus nicolasa muscle and the paraspinal muscles. We then elevated three fasciocutaneous flaps. We elevated superiorly based lumbar fasciocutaneous flap about 12 cm up to L2 correlated to the MRI and tenderness on physical exam. We then elevated left and right inferiorly based gluteal fasciocutaneous flap. Thus far down as we could with the instruments we had and we were able to dissect about 20 cm with the #10, just deep to rafael's fascia dissected the skin flaps off the soft tissue and then with a combination of sharp dissection and electrocautery, we were able to debulk a large amount of fat necrosis, silicone scar tissue, and silicone granulomas silicone that was liquid that we encountered. We were able to debulk this and bilateral buttocks as well as the back . A 300 cm2 of necrotic right buttock soft tissue that was debrided, 225 cm2 of left buttock necrotic soft tissue that was debrided, 91 cm2 necrotic right back soft tissue that was debrided, and 70 cm2 necrotic left back soft tissue that was debrided in this manner and sent to the lab. After doing this, we noticed there was severe involvement necrosis of bilateral gluteus nicolasa muscles and this was debrided sharply. We through the muscle and a superficial silicone granuloma just below the dermis would also pop. We obtained hemostasis with electrocautery. After irrigating with 2 L of antibiotic irrigation, after reconfirmed hemostasis, we could go any further inferiorly. We were pleased with the initial debulk and replace VAC back sponges underneath the flaps, partially stapled closed and set the VAC at 125 mmHg, flipped the patient over, extubated her and sent to recovery room in stable condition. FINDINGS: As above. SPECIMENS: Bilateral buttock necrotic soft tissue and also bilateral back necrotic soft tissue. Drains worked back VAC sponge x2 bilateral buttocks. ESTIMATED BLOOD LOSS: 250 mL. COMPLICATIONS: None. CONDITION: Stable. Viola Calles M.D. DR: GAMAL JOB#: [id number] CC: ROZ
--- NOTE | 2016-04-08 04:49 | Operative Note - Dictated ---
DATE OF OPERATION: 04/04/2016 SURGEON: Brenda Calles M.D. COMPO CONVEYOR OPERATOR: 1. Luz Juan M.D. 2. Elaina Eisenberg ANESTHESIA: General endotracheal tube anesthesia. PREOPERATIVE DIAGNOSES: As follows, 1. Open bilateral buttock wounds, status post radical debridement and resection of necrotic soft tissue. 2. Bilateral buttock, hip, and back soft tissue necrosis secondary to foreign body. 3. Cellulitis of bilateral buttocks. POSTOPERATIVE DIAGNOSES: 1. Open bilateral buttock wounds, status post radical debridement and resection of necrotic soft tissue. 2. Bilateral buttock, hip, and back soft tissue necrosis secondary to foreign body. 3. Cellulitis of bilateral buttocks. PROCEDURE PERFORMED: As follows, 1. Staged radical partial debridement and removal of foreign bodies from lumbar back and bilateral buttocks and hips. 2. Radical resection of 260 cm2 of necrotic right buttock and hip soft tissue mass. 3. Radical resection of 360 cm2 of necrotic left buttock and hip necrotic soft tissue mass. 4. Lumbar spine fasciocutaneous advancement flap. 5. Right gluteal fasciocutaneous advancement flap. 6. Left gluteal fasciocutaneous advancement flap. 7. Complex closure of 46 cm open back wound. INDICATIONS FOR PROCEDURE: This is a 31-year-old female who was previously operated 3 days prior and in the interim the patient has been treated with VAC therapy on the floor. Her vitals remained stable. Her cellulitis is improved with IV antibiotics. Today the plan is to take the patient back for a planned second stage for further debridement of necrotic soft tissue from bilateral buttocks and hips as well as the back and removal of foreign material, and fasciocutaneous advancement flap closure over drains. Risks and benefits of the operation were fully discussed with the patient in the previous operation and reiterated in the holding area today. The patient agreed to proceed and signed informed consent, and all questions were answered. DESCRIPTION OF PROCEDURE: The patient was taken to the operating room and in the supine position placed under general endotracheal tube anesthesia. After perioperative antibiotics were given, and SCDs were placed in bilateral lower extremities, she was flipped in the prone position after appropriate positioning and padding. We removed the VAC that were placed prior. We then prepped and draped the entire area in the usual clean and sterile manner. We used the blue towel and Ioban dressing over the anus to block any bowel flow. We started the operation by exploring for any bleeding. There was nothing significant. We then used [place] clamps and we measured our proposed skin excisions from bilateral buttocks, flaps, as well as the back flaps. We used a #10 scalpel to cut out the skin and electrocautery to cut out the skin and soft tissue. We then with the aid of a lighted retractor, had to further elevate her flaps inferiorly of the bilateral buttocks found to be inferior gluteal crease. We elevated in the plane of dissection above the gluteus nicolasa muscle, what was significant with bilateral gluteus nicolasa muscle in the inferolateral portion was significantly infiltrated hardened necrotic and nonviable with liquid silicone pop between. We had to debride about 25% of bilateral gluteus nicolasa muscles with electrocautery. After doing this, we reconstructed the muscle by closing with a 0 Vicryl [id number] sutures. We then debrided more soft tissue from the right buttock and left buttock hips and backs. There was 360 cm2 necrotic soft tissue from the right buttock and hip that was debrided and 360 cm2 of necrotic soft tissue in the left buttock and hip that was debrided with a combination of sharp dissection as well as electrocautery. We made sure hemostasis was obtained. After doing this, we were pleased with the capillary refill to the skin flaps. We then incised the deep fascia and advanced our bilateral gluteus flaps superiorly, and turned to the lumbar flap, which was previously elevated. After cutting out some skin, we incised the deep fascia to advance it. We then used 0 PDS sutures and progressive tension suturing, advancement flap closure to close some of the space. Prior to doing this, we irrigated with 2 L of antibiotic irrigation. We then placed 19-Irish Abdullahi drains in each buttock into dependent portions, and two 10 mm WILBERTO drains one in each buttock in the central portion and one 10 mm WILBERTO drain underneath the flap. These were taken out through separate anterolateral hip incisions, stab incisions, and secured in place with 2-0 silk sutures. There was 46-cm long incision after dog ears were accounted for. We then lined up and approximated the Ange's fascia in interrupted fashion with 0-Vicryl sutures. We lined up and approximated the deep dermis in interrupted fashion and 2-0 Vicryl suture and closed the epidermis with a running 3-0 Monocryl subcuticular suture. We then placed the Prevena incisional VAC. After doing this, there was a good capillary refill to the skin flaps. There was minimal tension and a nice contour was achieved, and we were very pleased with the results. The patient was flipped over to the supine position, extubated, and transferred to recovery room in stable condition. FINDINGS: As above. SPECIMENS: Left buttock and hip necrotic soft tissue as well as right buttock and hip necrotic soft tissue as well as skin from the back and buttock and muscle. DRAINS: #19 Irish Abdullahi drains x2 and 10-mm WILBERTO x3, bilateral buttocks. ESTIMATED BLOOD LOSS: About 250 mL. COMPLICATIONS: None. CONDITION: Stable. Gingere Chester Calles M.D. DR: GAMAL JOB#: [id number] CC:
--- NOTE | 2016-04-23 16:38 | Consultation ---
DATE OF CONSULTATION: 03/31/2016 HISTORY OF PRESENT ILLNESS: This is a 31-year-old female who presented to the emergency room at [facility] on 03/30/2016 complaining of severe bilateral buttock and back pain, burning and itching as well as fevers and chills, redness and warmth of bilateral buttocks. The patient has a history of infections of bilateral buttocks and hips with some foreign material, possibly silicone several years ago. The patient has had intermittent problems over the past year that are now worsening. She was admitted to the medical service under Dr. Shah for intractable bilateral buttock and back pain as well as low grade cellulitis and for possible soft tissue necrosis. Dr. Shah consulted me after MRIs were done, which showed soft tissue necrosis. Thus I was called in emergently the patient. PHYSICAL EXAMINATION: MUSCULOSKELETAL: The patient has significantly tender, red, and warm bilateral buttocks with tender and painful nodules. Multiple wounds on each buttock, there were some small areas of hyperpigmentation. There were small areas of bilateral inguinal lymphadenopathy. There was some redness and warmth on both buttocks consistent with early cellulitis. The lumbar back was also tender to palpation and there was a mass-like material underneath. The patient complained of significant manipulations on ambulation and significant pain with sitting as well as paresthesias and acute numbness of her legs, left greater than the right. DIAGNOSTIC DATA: I reviewed the MRIs of the lumbar spine and pelvis, which showed significant infiltration of her bilateral gluteus nicolasa muscles as well as the soft tissue as well as migration to L2 level of her lumbar spine, which is likely the inciting cause of her incapacitating pain and recurrent infections. Based on her physical exam, acute paraesthesias and severe pain and her MRIs, I recommended emergent operation for debridement, VAC therapy and then closure, for which the patient agreed. I will now dictate separate operative report. Viola Calles M.D. DR: GAMAL JOB#: [id number] CC:
== END 2016-04-07 12:05 | disposition home or self-care (01) | DRG 574 ==
LOC: EDBEDREQ 12:01 → EMR 12:22 → EDBEDREQ 12:45 → 2E 13:02 → 3E 17:57
PROC: 0JBM0ZZ Excision of Left Upper Leg Subcutaneous Tissue and Fascia, Open Approach (ICD-10-PCS; principal; 2016-04-01 11:30)
PROC: 0JBL0ZZ Excision of Right Upper Leg Subcutaneous Tissue and Fascia, Open Approach (ICD-10-PCS; principal; 2016-04-01 11:30)
PROC: 0KBF0ZZ Excision of Right Trunk Muscle, Open Approach (ICD-10-PCS; principal; 2016-04-01 11:30)
PROC: 0JB90ZZ Excision of Buttock Subcutaneous Tissue and Fascia, Open Approach (ICD-10-PCS; principal; 2016-04-01 11:30)
PROC: 0KBG0ZZ Excision of Left Trunk Muscle, Open Approach (ICD-10-PCS; principal; 2016-04-01 11:30)
PROC: 0JB70ZZ Excision of Back Subcutaneous Tissue and Fascia, Open Approach (ICD-10-PCS; principal; 2016-04-01 11:30)
PROC: 0JBL0ZZ Excision of Right Upper Leg Subcutaneous Tissue and Fascia, Open Approach (ICD-10-PCS; 2016-04-04)
PROC: 0JB70ZZ Excision of Back Subcutaneous Tissue and Fascia, Open Approach (ICD-10-PCS; 2016-04-04)
PROC: 0JX90ZC Transfer Buttock Subcutaneous Tissue and Fascia with Skin, Subcutaneous Tissue and Fascia, Open Approach (ICD-10-PCS; 2016-04-04)
PROC: 0JB90ZZ Excision of Buttock Subcutaneous Tissue and Fascia, Open Approach (ICD-10-PCS; 2016-04-04)
PROC: 0JX70ZC Transfer Back Subcutaneous Tissue and Fascia with Skin, Subcutaneous Tissue and Fascia, Open Approach (ICD-10-PCS; 2016-04-04)
PROC: 0JBM0ZZ Excision of Left Upper Leg Subcutaneous Tissue and Fascia, Open Approach (ICD-10-PCS; 2016-04-04)
DX: L03.317 Cellulitis of buttock (principal); L03.312 Cellulitis of back [any part except buttock and flank]; M54.5 Low back pain; F12.90 Cannabis use, unspecified, uncomplicated; L92.3 Foreign body granuloma of the skin and subcutaneous tissue
CPT/HCPCS: 36415; 71010; 72148; 72195; 80048; 80053; 81003; 81025; 82164; 82784; 84165; 85025; 85610; 85613; 85651; 85730; 86039; 86140; 86162; 86235; 86332; 86334; 86360; 86431; 86850; 86900; 86901; 86920; 87040; 87086; 94003; 94150; 94760; J2180; J2250; J2405; J2765